=== PATIENT | female | born 1995 ===

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

== ENCOUNTER 2017-03-30 18:37 | Emergency (ER) | payer SELFPAY ==
[2017-03-30 18:57] VITALS: RESP 18; O2SAT 100
[2017-03-30] MEDS ORDERED: Sodium Chloride 0.9% 1,000 ML IV ONE (19:10)
--- NOTE | 2017-03-30 19:29 | C.PDOC ---
History Of Present Illness 21 y/o female c/o chest pain and cough symptoms for 1 week. Reports occasional SOB. Denies fever or chills. LMP last week. No palpitations or diaphoresis. Time Seen by Provider: 03/30/17 19:27 Chief Complaint (Nursing): Chest Pain History Per: Patient History/Exam Limitations: no limitations Onset/Duration Of Symptoms: Days (1 week) Current Symptoms Are (Timing): Still Present Severity: Mild Quality: "Pain" Associated Symptoms: denies: Diaphoresis Recent travel outside of the [place]: No Additional History Per: Patient Past Medical History Reviewed: Historical Data, Nursing Documentation, Vital Signs Vital Signs: Last Vital Signs Temp 97.9 F 03/30/17 18:55 Pulse 75 03/30/17 18:55 Resp 18 03/30/17 18:55 BP 109/72 03/30/17 18:55 Pulse Ox 100 03/30/17 20:46 - Medical History PMH: Pneumonia Family History: States: Unknown Family Hx - Social History Hx Tobacco Use: No Hx Alcohol Use: No Hx Substance Use: No - Immunization History Hx Tetanus Toxoid Vaccination: Yes Hx Influenza Vaccination: No Hx Pneumococcal Vaccination: No Review Of Systems Except As Marked, All Systems Reviewed And Found Negative. Constitutional: Negative for: Fever, Chills, Sweats Cardiovascular: Positive for: Chest Pain. Negative for: Palpitations Respiratory: Positive for: Cough, Shortness of Breath (occasional) Physical Exam - Physical Exam Appears: Non-toxic, No Acute Distress Skin: Warm, Dry Head: Atraumatic, Normacephalic Oral Mucosa: Moist Chest: Symmetrical, Tenderness (Tenderness to the anterior chest wall area by the sternum) Cardiovascular: Rhythm Regular, No Murmur Respiratory: Normal Breath Sounds, No Rales, No Rhonchi, No Wheezing Gastrointestinal/Abdominal: Soft, No Tenderness Back: No CVA Tenderness Neurological/Psych: Oriented x3, Normal Speech, Other (No focal deficit) Gait: Steady ED Course And Treatment - Laboratory Results Result Diagrams: 03/30/17 19:32 03/30/17 19:32 ECG: Interpreted By Me, Viewed By [place] ECG Rhythm: Sinus Rhythm ECG Interpretation: Normal Interpretation Of ECG: Normal tracing Rate From EC O2 Sat by Pulse Oximetry: 100 (RA) Pulse Ox Interpretation: Normal - Radiology CXR: Interpreted by Me CXR Interpretation: Yes: No Acute Disease. No: Infiltrates Medical Decision Making Medical Decision Making: Plans: * EKG * Blood labs * CXR * Toradol * IV fluids Disposition Doctor Will See Patient In The: Office Counseled Patient/Family Regarding: Diagnosis - Disposition Referrals: [facility] [Outside] Disposition: HOME/ ROUTINE Disposition Time: 20:38 Condition: STABLE Prescriptions: Azithromycin [Zithromax] 500 mg PO DAILY #7 tablet Naproxen 375 mg PO TIDPC #20 tablet Instructions: Pleurisy (ED), Upper Respiratory Infection (ED) Forms: [employer] ([employer]) Connect (Hong Konger), Gen Discharge Inst [employer] Print Language: GREENLANDIC - POA Present On Arrival: None - Clinical Impression Clinical Impression: Pleuritic pain, Upper respiratory infection - Scribe Statement The provider has reviewed the documentation as recorded by the Scribe Alejandra israel All medical record entries made by the Scribe were at my direction and personally dictated by me. I have reviewed the chart and agree that the record accurately reflects my personal performance of the history, physical exam, medical decision making, and the department course for this patient. I have also personally directed, reviewed, and agree with the discharge instructions and disposition.
[2017-03-30 19:36] LABS: BASO % 0.7 % (0.0-2.0); EOS % 0.8 % (0.0-4.0); HEMATOCRIT 38.8 % (34.0-47.0); LYMPH # 2.3 K/uL (1.0-4.3); LYMPH % 34.8 % (20.0-40.0); MEAN CELL VOLUME 87.7 fL (81.0-99.0); MEAN CORPUSCULAR HEMOGLOBIN 29.8 pg (27.0-31.0); MEAN PLATELET VOLUME 7.1 fL (7.2-11.7); MONO # 0.6 K/uL (0.0-0.8); MONO % 9.8 % (0.0-10.0); WHITE BLOOD COUNT 6.5 K/uL (4.8-10.8)
[2017-03-30 19:44] LABS: CHLORIDE 101 mmol/L (98-107); SODIUM 138 mmol/L (132-148)
[2017-03-30 19:45] LABS: POTASSIUM 3.9 mmol/L (3.6-5.2)
[2017-03-30 19:47] LABS: ALB/GLOB RATIO 1.5 (1.0-2.1); ALKALINE PHOSPHATASE 83 U/L (38-126); ALT/SGPT 30 U/L (9-52); AST/SGOT 24 U/L (14-36); BILIRUBIN,TOTAL 0.8 mg/dL (0.2-1.3); BLOOD UREA NITROGEN 12 mg/dL (7-17); CARBON DIOXIDE 26 mmol/L (22-30); GFR AFRICAN-AMERICAN > 60; GLUCOSE,RANDOM 79 mg/dL (65-105); TOTAL PROTEIN 7.7 g/dL (6.3-8.3)
[2017-03-30 19:48] LABS: CALCIUM 9.2 mg/dl (8.6-10.4)
[2017-03-30 20:57] VITALS: BP 124/67; PULSE 78; TEMP 98
--- NOTE | 2017-03-31 08:10 | RAD ---
HISTORY: chest pain COMPARISON: Comparison is made to 09/29/2016 TECHNIQUE: Chest PA and lateral FINDINGS: LUNGS: No active pulmonary disease. PLEURA: No significant pleural effusion identified. No pneumothorax apparent. CARDIOVASCULAR: Normal. OSSEOUS STRUCTURES: No significant abnormalities. VISUALIZED UPPER ABDOMEN: Normal. OTHER FINDINGS: None. IMPRESSION: No active disease.
--- NOTE | 2017-04-01 12:20 | CARD ---
APPROVED REPORT EKG Measurement Heart [id number] <Conclusion> Normal sinus rhythm Normal ECG
== END 2017-03-30 21:04 | disposition home or self-care (01) ==
LOC: C.ER 18:37
DX: R09.1 Pleurisy (principal); J06.9 Acute upper respiratory infection, unspecified
CPT/HCPCS: 71020; 80053; 84484; 85025; 85378; 96374; 99285; J1885; J7040

== ENCOUNTER 2017-08-17 08:31 | Emergency (ER) | payer OTHER ==
[2017-08-17 08:41] VITALS: BP 133/85; PULSE 78; RESP 18; TEMP 98.3; O2SAT 98
--- NOTE | 2017-08-17 08:58 | C.PDOC ---
History Of Present Illness 21-year-old female, presents to the emergency department with complaints of bilateral eye redness, itching and lid swelling. Denies any discharge, visual changes or injury to the eye. She does not use glasses or contacts. Time Seen by Provider: 08/17/17 08:42 Chief Complaint (Nursing): Eye Problem History Per: Patient History/Exam Limitations: no limitations Past Medical History Reviewed: Historical Data, Nursing Documentation, Vital Signs Vital Signs: Last Vital Signs Temp 98.3 F 08/17/17 08:37 Pulse 78 08/17/17 08:37 Resp 18 08/17/17 08:37 BP 133/85 08/17/17 08:37 Pulse Ox 98 08/17/17 11:09 - Medical History PMH: No Chronic Diseases, Pneumonia Family History: States: No Known Family Hx - Social History Hx Tobacco Use: No Hx Alcohol Use: No Hx Substance Use: No - Immunization History Hx Tetanus Toxoid Vaccination: No Hx Influenza Vaccination: No Hx Pneumococcal Vaccination: No Review Of Systems Constitutional: Negative for: Fever Eyes: Positive for: Eyelid Inflammation, Redness. Negative for: Vision Change ENT: Negative for: Ear Pain, Nose Congestion, Throat Pain Neurological: Negative for: Headache, Dizziness Physical Exam - Physical Exam Appears: Well, Non-toxic, No Acute Distress Skin: Normal Color, Warm, Dry, No Rash Head: Atraumatic, Normacephalic Eye(s): bilateral: PERRL, EOMI, Eyelid Inflammation (very mild eyelid inflammation), Other (Dark circles under eyes. no discharge, no conjunctival injection) Nose: Normal Oral Mucosa: Moist Lips: Normal Appearing Neck: Normal ROM Chest: Symmetrical Extremity: Bilateral: Atraumatic, Normal ROM Neurological/Psych: Oriented x3, Normal Speech ED Course And Treatment O2 Sat by Pulse Oximetry: 98 (RA) Pulse Ox Interpretation: Normal Medical Decision Making Medical Decision Making: Patient with bilateral eye redness and itching. No signs of injury, cellulitis, infection or foreign body. Patient treated with Claritin. Recommend allergy medicine Disposition Counseled Patient/Family Regarding: Diagnosis, Need For Followup, Rx Given - Disposition Referrals: [facility] [Outside] [facility] [Outside] Disposition: HOME/ ROUTINE Disposition Time: 08:58 Condition: STABLE Additional Instructions: Prescription sent to [facility] pharmacy Apply drops to eyes for itching and redness take daily allergy medicine follow up in the clinic Prescriptions: Loratadine [Claritin] 10 mg PO DAILY #30 tab Olopatadine 0.1% Opht [Patanol 0.1% Opht Soln] 5 ml OU DAILY #1 bottle Instructions: Seasonal Allergies in Adults Forms: [employer] (Turks [place] Islander) - POA Present On Arrival: None - Clinical Impression Clinical Impression: Conjunctivitis - Scribe Statement The provider has reviewed the documentation as recorded by the Scribe (Geetha Ramirez) All medical record entries made by the Scribe were at my direction and personally dictated by me. I have reviewed the chart and agree that the record accurately reflects my personal performance of the history, physical exam, medical decision making, and the department course for this patient. I have also personally directed, reviewed, and agree with the discharge instructions and disposition.
== END 2017-08-17 09:17 | disposition home or self-care (01) ==
LOC: C.ER 08:31
DX: H10.9 Unspecified conjunctivitis (principal)

== ENCOUNTER 2017-09-05 17:04 | Emergency (ER) | payer OTHER ==
[2017-09-05 17:04] VITALS: BMI 27.7
[2017-09-05 17:24] VITALS: BP 133/84; PULSE 92; RESP 18; TEMP 98.1; O2SAT 100
--- NOTE | 2017-09-05 17:44 | C.PDOC ---
History Of Present Illness 22 y/o female presents to the ER complaining of cough, nasal congestion and sore throat which has been present for the past 2 weeks.Patient states that she has greenish/yellowish sputum. Patient denies having abdominal pain, nausea, vomiting, and diarrhea. HPI: Influenza Time Seen by Provider: 09/05/17 17:26 Chief Complaint: Cough, Cold, Congestion History Per: Patient Exam Limitations: no limitations Onset/Duration Of Symptoms: Days Risk factors for flu complications: No: adult > 65 years Past Medical History Reviewed: Historical Data, Nursing Documentation, Vital Signs Vital Signs: Last Vital Signs Temp 98.1 F 09/05/17 17:20 Pulse 92 H 09/05/17 17:20 Resp 18 09/05/17 17:20 BP 133/84 09/05/17 17:20 Pulse Ox 100 09/05/17 17:20 - Medical History PMH: Pneumonia Surgical History: No Surg Hx Family History: States: No Known Family Hx - Social History Hx Tobacco Use: No Hx Alcohol Use: No Hx Substance Use: No - Immunization History Hx Tetanus Toxoid Vaccination: No Hx Influenza Vaccination: No Hx Pneumococcal Vaccination: No Review Of Systems Except As Marked, All Systems Reviewed And Found Negative. Constitutional: Negative for: Fever, Chills ENT: Positive for: Nose Congestion, Throat Pain Respiratory: Positive for: Cough, Sputum Gastrointestinal: Negative for: Nausea, Vomiting, Abdominal Pain, Diarrhea Physical Exam - Physical Exam Appears: Non-toxic, No Acute Distress Skin: Normal Color, Warm, Dry Head: Atraumatic, Normacephalic Eye(s): bilateral: Normal Inspection Ear(s): Bilateral: Normal Nose: Normal Oral Mucosa: Moist Throat: Normal, No Erythema, No Exudate Neck: Supple Chest: Symmetrical Cardiovascular: Rhythm Regular Respiratory: Normal Breath Sounds, No Rales, No Rhonchi, No Wheezing Neurological/Psych: Oriented x3, Normal Speech, Normal Motor, Normal Sensation Medical Decision Making Medical Decision Making: ro strep vs influenza vs pna vs viral syndrome Plan: --Flu Swab --Rapid Strep --CXR pt reassesed vitals stable lungs clear. pt had blood work 1 week ago in clinic cbc/cmp neg, mono neg. pt also on antibiotics for b/l eye as per optho. - ECG O2 Sat by Pulse Oximetry: 100 (RA) Pulse Ox Interpretation: Normal - Radiology X-Ray: Interpreted by Me, Viewed By Me X-Ray Interpretation: No Acute Disease Disposition - Disposition Disposition: HOME/ ROUTINE Disposition Time: 18:15 Condition: STABLE Additional Instructions: please follow up with your doctor/clinic. return to er with worsening symptoms or concerns Prescriptions: Oseltamivir Phosphate [Tamiflu] 75 mg PO BID #10 capsule Instructions: Viral Syndrome (DC) Forms: [employer] (Hungarian) - Clinical Impression Clinical Impression: Influenza-like illness - Scribe Statement The provider has reviewed the documentation as recorded by the Trista Leal Provider Attestation: All medical record entries made by the Trista were at my direction and personally dictated by me. I have reviewed the chart and agree that the record accurately reflects my personal performance of the history, physical exam, medical decision making, and the department course for this patient. I have also personally directed, reviewed, and agree with the discharge instructions and disposition.
[2017-09-05 17:57] LABS: INFLUENZA A B NEGATIVE FOR FLU A/B (NEGATIVE)
--- NOTE | 2017-09-05 18:00 | RAD ---
HISTORY: cough COMPARISON: 03/30/2017. TECHNIQUE: Chest PA and lateral FINDINGS: LUNGS: No active pulmonary disease. PLEURA: No significant pleural effusion identified. No pneumothorax apparent. CARDIOVASCULAR: Normal. OSSEOUS STRUCTURES: No significant abnormalities. VISUALIZED UPPER ABDOMEN: Normal. OTHER FINDINGS: None. IMPRESSION: No active disease. No significant interval change compared to the prior examination(s).
== END 2017-09-05 18:23 | disposition home or self-care (01) ==
LOC: C.ER 17:04
DX: J11.1 Influenza due to unidentified influenza virus with other respiratory manifestations (principal)

== ENCOUNTER 2017-09-07 16:29 | Emergency (ER) | payer OTHER ==
[2017-09-07] MEDS ORDERED: Sodium Chloride 0.9% 1,000 ML IV ONE (17:34)
--- NOTE | 2017-09-07 17:35 | C.PDOC ---
History Of Present Illness <Barbie Joshi - Last Filed: 09/07/17 18:37> <Zee Guillen iKke - Last Filed: 09/07/17 20:13> PERSIST EYE DISCOMFORT, L FACIAL SWELLING X 2-3 WEEKS. SEEN 08/17 AND 09/05 FOR SAME, INITIALLY GIVEN Loratadine [Claritin] 10 mg PO DAILY #30 tab Olopatadine 0.1% Opht [Patanol 0.1% Opht Soln] W NO IMPROVE. DX FLU 09/05. EVAL BY OPTHOMOLOGIST ([facility]?) LAST WEEK, PS TOLD WAS NO INFECTION "NO EYE PROBLEM" GIVEN DROPS FOR DRY EYES. +SINUS PRESSURE, SUBJ FEVER. NO VISION CHANGE , NV. NO TRAUMA. S/P MOTRIN @ 12 PM EXAM MILD DIST NONTOXIC HEENT B/L EYES WNL, NO PHOOTPHOBIA, NO CONJUNCTIVITIS EOMI NO DC; NO PERIORB SWELL, ERYTHEMA, EDEMA. GEN FRONTAL MAX SINUS TEND NOSE CLEAR NECK SUPPLE SKIN NO RASH, LESIONS NEURO INTACT REMAINDER NEG (Barbie Joshi) History Per: Patient History/Exam Limitations: no limitations Onset/Duration Of Symptoms: Days Current Symptoms Are (Timing): Still Present Severity: Moderate <Barbie Joshi - Last Filed: 09/07/17 18:37> <Patricia Guillendebi Stokes - Last Filed: 09/07/17 20:13> Time Seen by Provider: 09/07/17 17:17 Chief Complaint (Nursing): Eye Problem Past Medical History Reviewed: Historical Data, Nursing Documentation, Vital Signs - Medical History PMH: Pneumonia Surgical History: No Surg Hx Family History: States: No Known Family Hx - Social History Hx Tobacco Use: No Hx Alcohol Use: No Hx Substance Use: No - Immunization History Hx Tetanus Toxoid Vaccination: No Hx Influenza Vaccination: No Hx Pneumococcal Vaccination: No <Barbie Joshi - Last Filed: 09/07/17 18:37> Vital Signs: Last Vital Signs Temp 98.1 F 09/07/17 16:53 Pulse 86 09/07/17 16:53 Resp 20 09/07/17 16:53 BP 128/85 09/07/17 16:53 Pulse Ox 100 09/07/17 18:37 Review Of Systems Except As Marked, All Systems Reviewed And Found Negative. Constitutional: Positive for: Fever (subjective fever). Negative for: Chills Eyes: Positive for: Pain (eye discomfort). Negative for: Vision Change ENT: Positive for: Other (sinus pressure) Gastrointestinal: Negative for: Nausea, Vomiting Skin: Positive for: Other (left-sided facial swelling) <Barbie Joshi - Last Filed: 09/07/17 18:37> Physical Exam - Physical Exam Appears: Non-toxic, Other (mild distress) Skin: Normal Color, Warm, No Rash, Other (no lesions) Head: Atraumatic, Normacephalic Eye(s): bilateral: Normal Inspection (WNL, no photophobia, no conjunctivitis, EOMI, no discharge, no periorbital swelling, no erythema, no edema), EOMI Nose: Tenderness (generalized frontal max sinus tenderness) Neck: Supple Neurological/Psych: Oriented x3, Normal Speech <Barbie Joshi - Last Filed: 09/07/17 18:37> ED Course And Treatment - Laboratory Results Result Diagrams: 09/07/17 17:57 09/07/17 17:57 O2 Sat by Pulse Oximetry: 100 (RA) Pulse Ox Interpretation: Normal <Barbie Joshi - Last Filed: 09/07/17 18:37> - Laboratory Results Result Diagrams: 09/07/17 17:57 09/07/17 17:57 - CT Scan/US CT head Other Rad Studies (CT/US): Read By Radiologist, Radiology Report Reviewed CT/US Interpretation: IMPRESSION: - No acute findings seen within the brain. - Mild sinus inflammatory disease. - See above for remaining findings. CT Facial bones Other Rad Studies (CT/US): Read By Radiologist, Radiology Report Reviewed CT/US Interpretation: IMPRESSION: - No evidence of significant acute process. No definite cause for left eye. pain identified. - Sinus inflammatory disease. - See above for remaining findings. Progress Note: Pt was signed out to me at 7pm by Dr. Joshi to f/up CT scans. Reassessment Condition: Improved <Zee Guillen - Last Filed: 09/07/17 20:13> Progress - Data Reviewed Data Reviewed: Lab, Diagnostic imaging, Old records <Barbie Joshi - Last Filed: 09/07/17 18:37> Medical Decision Making <Barbie Joshi - Last Filed: 09/07/17 18:37> <Zee Guillen - Last Filed: 09/07/17 20:13> Medical Decision Making: Plan: --Labs --UA --CT- Head --CT- Orbits/ Facials (Barbie Joshi) Disposition - Disposition Disposition Time: 19:00 <Barbie Joshi - Last Filed: 09/07/17 18:37> Counseled Patient/Family Regarding: Studies Performed, Diagnosis, Need For Followup, Rx Given - Disposition Disposition Time: 20:10 <Zee Guillen - Last Filed: 09/07/17 20:13> - Disposition Referrals: [facility] at [facility] [Outside] Disposition: HOME/ ROUTINE Condition: IMPROVED Additional Instructions: Follow up in the clinic for further evaluation and treatment. Return to the ER if you develop high fever, vomiting, redness, change in vision, worsening of symptoms or if you have any other concerns. Prescriptions: Amoxicillin/Clavulanate [Augmentin 875 MG-125 MG] 1 tab PO BID #14 tab Fluticasone Nasal [Flonase] 2 spr NS DAILY #1 bottle Naproxen [Naprosyn] 1 tab PO BID PRN #20 tab PRN Reason: Pain Instructions: Sinusitis, Adult (DC) Forms: [employer] (Urdu) - Clinical Impression Clinical Impression: Sinusitis - Scribe Statement The provider has reviewed the documentation as recorded by the Scribe <Barbie Joshi - Last Filed: 09/07/17 18:37> <Zee Guillen - Last Filed: 09/07/17 20:13> - Scribe Statement Yamilex Leal (Barbie Joshi) Provider Attestation: All medical record entries made by the Scribe were at my direction and personally dictated by me. I have reviewed the chart and agree that the record accurately reflects my personal performance of the history, physical exam, medical decision making, and the department course for this patient. I have also personally directed, reviewed, and agree with the discharge instructions and disposition. (Barbie Joshi) Physician Patient Turnover Patient Signed Over To: Zee Guillen Handoff Comments: FU CT, DISPO <Barbie Joshi - Last Filed: 09/07/17 18:37>
[2017-09-07 18:00] LABS: BASO % 0.5 % (0.0-2.0); EOS # 0.1 K/uL (0.0-0.7); EOS % 1.2 % (0.0-4.0); HEMOGLOBIN 12.7 g/dL (11.0-16.0); LYMPH % 31.5 % (20.0-40.0); MEAN CELL VOLUME 88.1 fL (81.0-99.0); MEAN CORPUSCULAR HEMOGLOBIN 30.4 pg (27.0-31.0); MEAN CORPUSCULAR HGB CONC 34.5 g/dL (33.0-37.0); MEAN PLATELET VOLUME 6.8 fL (7.2-11.7); MONO # 1.1 K/uL (0.0-0.8); MONO % 11.1 % (0.0-10.0); NEUT # 5.3 K/uL (1.8-7.0); NEUT % 55.7 % (50.0-75.0); RBC 4.18 Mil/uL (3.80-5.20); RED CELL DISTRIBUTION WIDTH 12.7 % (11.5-14.5); WHITE BLOOD COUNT 9.5 K/uL (4.8-10.8)
[2017-09-07 18:16] LABS: BLOOD UREA NITROGEN 9 mg/dL (7-17); CALCIUM 8.1 mg/dl (8.6-10.4); GFR AFRICAN-AMERICAN > 60; GFR NON-AFRICAN AMERICAN > 60
[2017-09-07] MEDS ORDERED: Iodixanol 320 MG/ML 100 ML BOTTLE IV ONE (18:19)
--- NOTE | 2017-09-07 19:39 | CT ---
EXAM: CT Head Without Intravenous Contrast EXAM DATE/TIME: 09/07/2017 5:37 PM CLINICAL HISTORY: 22 years old, female; Condition or disease; Headache; Cluster TECHNIQUE: Axial computed tomography images of the head/brain without intravenous contrast. All CT scans at this facility use one or more dose reduction techniques, viz.: automated exposure control; ma/kV adjustment per patient size (including targeted exams where dose is matched to indication; i.e. head); or iterative reconstruction technique. COMPARISON: No relevant prior studies available. FINDINGS: BRAIN: No significant acute abnormality identified. No acute hemorrhage seen within the brain. No acute extra-axial fluid collections visualized. No evidence of significant mass effect within the brain. Normal king-white matter differentiation. VENTRICLES: No evidence of significant hydrocephalus. BONES/JOINTS: No acute fractures or other acute bony abnormality noted. SOFT TISSUES: No acute abnormality of the visualized soft tissues is seen. SINUSES: Mild sinus inflammatory disease. There is mild mucosal thickening in the bilateral maxillary and bilateral sphenoid sinuses. MASTOID AIR CELLS: Mastoid air cells appear clear. IMPRESSION: - No acute findings seen within the brain. - Mild sinus inflammatory disease - See above for remaining findings.
--- NOTE | 2017-09-07 19:53 | CT ---
EXAM: CT Maxillofacial With Intravenous Contrast EXAM DATE/TIME: 09/07/2017 5:34 PM CLINICAL HISTORY: 22 years old, female; Pain; Eye pain; Left; Additional info: L facial pain, fullness TECHNIQUE: Axial computed tomography images of the face with intravenous contrast. All CT scans at this facility use one or more dose reduction techniques, viz.: automated exposure control; ma/kV adjustment per patient size (including targeted exams where dose is matched to indication; i.e. head); or iterative reconstruction technique. Coronal and sagittal reformatted images were created and reviewed. CONTRAST: 100 mL of visipaque 320 administered intravenously. COMPARISON: Recent head CT. FINDINGS: BONES/JOINTS: No acute fractures seen. No evidence of acute dislocation. SOFT TISSUES: No findings to suggest significant cellulitis of the soft tissues. No evidence of focal soft tissue fluid collection/abscess. LYMPH NODES: Multiple small lymph nodes seen in the neck and face bilaterally, none appearing pathologically enlarged. This is a nonspecific finding. No evidence of diffuse pathologic lymphadenopathy. ORBITS :Intraorbital soft tissues appear grossly intact. No evidence of orbital abscess, orbital cellulitis, or orbital emphysema. SUBMANDIBULAR/PAROTID GLANDS: No acute abnormality of the parotid or submandibular glands identified. SINUSES: Sinus inflammatory disease. There is mild to moderate mucosal thickening in the bilateral maxillary and bilateral ethmoid sinuses. No evidence of sinus fluid levels. MASTOID AIR CELLS: Mastoid air cells appear clear. AUDITORY SYSTEM: Middle ear cavities appear clear. DENTAL: No periodontal abscess seen. IMPRESSION: - No evidence of significant acute process. No definite cause for left eye pain identified. - Sinus inflammatory disease. - See above for remaining findings.
[2017-09-08 11:21] VITALS: BP 112/64; PULSE 72; RESP 18; TEMP 98.1; O2SAT 98; BMI 27.9
== END 2017-09-07 20:20 | disposition home or self-care (01) ==
LOC: C.ER 16:29
DX: J32.9 Chronic sinusitis, unspecified (principal)
CPT/HCPCS: 70450; 70481; 80048; 85025; 96361; 96374; 99284; J1885; J7040; Q9967

== ENCOUNTER 2017-09-26 17:51 | Emergency (ER) | payer OTHER ==
[2017-09-26 19:04] VITALS: BMI 28.4
[2017-09-26 19:08] VITALS: BP 122/82; PULSE 84; TEMP 98.1; O2SAT 100
--- NOTE | 2017-09-26 20:09 | C.PDOC ---
History Of Present Illness 22 yo female come in for evaluation of gradual onset of pain/discomfort on urination, urinary frequency for past 2 weeks. Pt admits, for past few days, developed left sided lower back pain, noted some "bloody vaginal spotting when wipe myself". Otherwise, pt denies fever, chills, sore throat, rash, cough, abd. pain, V/D, vaginal irritation or discharges. Ambulate to Ed for evaluation , not in any apparent distress. Time Seen by Provider: 09/26/17 19:34 Chief Complaint (Nursing): Female Genitourinary History Per: Patient Onset/Duration Of Symptoms: Gradual Past Medical History Reviewed: Historical Data, Nursing Documentation, Vital Signs Vital Signs: Last Vital Signs Temp 98.1 F 09/26/17 19:06 Pulse 84 09/26/17 19:06 Resp 20 09/26/17 22:11 BP 122/82 09/26/17 19:06 Pulse Ox 100 09/26/17 21:48 - Medical History PMH: Pneumonia Surgical History: Tonsillectomy Family History: States: Unknown Family Hx - Social History Hx Tobacco Use: No Hx Alcohol Use: Yes Hx Substance Use: No - Immunization History Hx Tetanus Toxoid Vaccination: No Hx Influenza Vaccination: No Hx Pneumococcal Vaccination: No Review Of Systems Except As Marked, All Systems Reviewed And Found Negative. Constitutional: Negative for: Fever, Chills ENT: Negative for: Throat Pain Respiratory: Negative for: Cough, Shortness of Breath, Wheezing Gastrointestinal: Negative for: Nausea, Vomiting, Abdominal Pain, Diarrhea Genitourinary: Positive for: Dysuria, Frequency, Hematuria, Vaginal Bleeding. Negative for: Pelvic Pain, Rash Skin: Negative for: Rash Neurological: Negative for: Weakness, Numbness, Headache, Dizziness Physical Exam - Physical Exam Appears: Well, Non-toxic, No Acute Distress Skin: Normal Color, Warm, Dry Eye(s): bilateral: PERRL Nose: No Flaring Oral Mucosa: Moist, No Drooling Throat: No Erythema Neck: Trachea Midline, Supple Cardiovascular: Rhythm Regular Respiratory: No Decreased Breath Sounds, No Accessory Muscle Use, No Stridor, No Wheezing Gastrointestinal/Abdominal: Soft, Tenderness (mild suprapubic), No Distention, No Guarding Back: No CVA Tenderness, Paraspinal Tenderness (Left sided lumbar paraspinal) Extremity: Normal ROM, No Pedal Edema, No Deformity Neurological/Psych: Oriented x3, Normal Speech ED Course And Treatment O2 Sat by Pulse Oximetry: 100 Pulse Ox Interpretation: Normal Progress Note: On re-eval, pt is afebrile, hemodynamicaly stable. Non-toxic. Tolerate Po well in ED. PusleOx 100% RA. Neck: Supple. ENT: no acute findings. Lungs: CTA B/L, BS equal B/L. CVS: (+)S1S2. reg. Abd: benign. back : (-) CVA tenderness. Neurologicaly intact. UA review (+) WBC, RBC, preg (-). Ucx-pending. Pt has clinical findings c/w UTI. Pt avdised. ref. to f/u with PMD, [facility] in 2-3 days for re-evaluation. return to Ed if any worsening or new changes. Disposition Counseled Patient/Family Regarding: Studies Performed, Diagnosis, Need For Followup, Rx Given - [facility]position [facility] Disposition: HOME/ ROUTINE Disposition Time: 20:40 Condition: STABLE Additional Instructions: Encourage fluids Take medication as prescribed Follow up with PMD and [facility] in 2 days for re-evaluation. Return to ED if any worsening, fever, chills or any other new changes. Prescriptions: Ciprofloxacin [Cipro] 1 tab PO BID #20 tab Cranberry Fruit Extract [Cranberry] 500 mg PO BID #20 capsule Instructions: Urinary Tract Infections in Adults Forms: [facility] (Tuvaluan) - Clinical Impression Clinical Impression: UTI (urinary tract infection)
[2017-09-26 20:23] LABS: HCG,QUALITATIVE URINE NEGATIVE (NEGATIVE)
[2017-09-26 20:27] LABS: SQUAMOUS EPITHIAL 8 /hpf (0-5); URINE BACTERIA RARE (<OCC); URINE BILIRUBIN NEGATIVE (NEGATIVE); URINE BLOOD 3+ (NEGATIVE); URINE GLUCOSE (UA) NORMAL (Normal); URINE LEUKOCYTE ESTERASE 2+ Leu/uL (Negative); URINE PROTEIN 1+ mg/dL (NEGATIVE)
[2017-09-26 20:28] LABS: URINE CLARITY HAZY (Clear); URINE COLOR ORANGE (YELLOW)
[2017-09-26 22:12] VITALS: RESP 20
== END 2017-09-26 22:11 | disposition home or self-care (01) ==
LOC: C.ER 17:51
DX: N39.0 Urinary tract infection, site not specified (principal)

== ENCOUNTER 2017-09-28 19:49 | Emergency (ER) | payer OTHER ==
[2017-09-28 19:49] VITALS: BMI 28.4
[2017-09-28 20:10] VITALS: RESP 16
[2017-09-28] MEDS ORDERED: Sodium Chloride 0.9% 1,000 ML IV ONE (20:22)
[2017-09-28 20:48] LABS: BASO % 0.4 % (0.0-2.0); EOS % 0.1 % (0.0-4.0); HEMOGLOBIN 12.4 g/dL (11.0-16.0); LYMPH # 1.6 K/uL (1.0-4.3); LYMPH % 14.8 % (20.0-40.0); MEAN CELL VOLUME 88.3 fL (81.0-99.0); MEAN CORPUSCULAR HEMOGLOBIN 29.6 pg (27.0-31.0); MEAN CORPUSCULAR HGB CONC 33.5 g/dL (33.0-37.0); MEAN PLATELET VOLUME 7.1 fL (7.2-11.7); MONO % 18.3 % (0.0-10.0); NEUT # 7.4 K/uL (1.8-7.0); NEUT % 66.4 % (50.0-75.0); RBC 4.19 Mil/uL (3.80-5.20); WHITE BLOOD COUNT 11.1 K/uL (4.8-10.8)
[2017-09-28 20:55] LABS: SQUAMOUS EPITHIAL < 1 /hpf (0-5); URINE BILIRUBIN NEGATIVE (NEGATIVE); URINE BLOOD 1+ (NEGATIVE); URINE CLARITY Clear (Clear); URINE COLOR Yellow (YELLOW); URINE GLUCOSE (UA) NORMAL (Normal); URINE LEUKOCYTE ESTERASE TRACE Leu/uL (Negative); URINE PROTEIN NEGATIVE (NEGATIVE)
[2017-09-28 21:02] LABS: ALB/GLOB RATIO 1.1 (1.0-2.1); ALBUMIN 4.2 g/dL (3.5-5.0); ALT/SGPT 15 U/L (9-52); AST/SGOT 19 U/L (14-36); BLOOD UREA NITROGEN 11 mg/dL (7-17); CALCIUM 8.8 mg/dl (8.6-10.4); GFR AFRICAN-AMERICAN > 60; GFR NON-AFRICAN AMERICAN > 60
--- NOTE | 2017-09-28 21:15 | C.PDOC ---
History Of Present Illness 22 year old female presents to the ER for an evaluation of left flank pain that has been going on for the past 5 days. Patient was seen in the ED 2 days ago for UTI, she was given 400mg ibuprofen and started on cipro. Patient states her urinary symptoms improved, however, she still has flank pain. Patient also reports she felt chills last night. Denies nausea or vomiting. Time Seen by Provider: 09/28/17 20:12 Chief Complaint (Nursing): Back Pain History Per: Patient History/Exam Limitations: no limitations Onset/Duration Of Symptoms: Days Current Symptoms Are (Timing): Still Present Quality Of Discomfort: Unable To Describe Previous Symptoms: Other (UTI) Associated Symptoms: None Recent travel outside of the [place]: No Past Medical History Reviewed: Historical Data, Nursing Documentation, Vital Signs Vital Signs: Last Vital Signs Temp 98.2 F 09/28/17 21:37 Pulse 78 09/28/17 21:37 Resp 16 09/28/17 21:37 BP 106/68 09/28/17 21:37 Pulse Ox 97 09/28/17 21:53 - Medical History PMH: Pneumonia Surgical History: Tonsillectomy Family History: States: Unknown Family Hx - Social History Hx Tobacco Use: No Hx Alcohol Use: Yes Hx Substance Use: No - Immunization History Hx Tetanus Toxoid Vaccination: No Hx Influenza Vaccination: No Hx Pneumococcal Vaccination: No Review Of Systems Constitutional: Positive for: Chills. Negative for: Fever Gastrointestinal: Negative for: Nausea, Vomiting Musculoskeletal: Positive for: Back Pain (Left flank) Physical Exam - Physical Exam Appears: Non-toxic Skin: Normal Color, Warm, Dry Head: Atraumatic, Normacephalic Eye(s): bilateral: Normal Inspection, EOMI Oral Mucosa: Moist Neck: Normal ROM Chest: Symmetrical, No Tenderness Cardiovascular: Rhythm Regular, No Murmur Respiratory: Normal Breath Sounds, No Rales, No Rhonchi, No Wheezing Gastrointestinal/Abdominal: Bowel Sounds, Soft, No Tenderness, No Distention, No Guarding Back: Normal Inspection, No Vertebral Tenderness, Other (Mild to left flank) Extremity: Bilateral: Atraumatic, Normal ROM Neurological/Psych: Oriented x3, Normal Speech Gait: Steady ED Course And Treatment - Laboratory Results Result Diagrams: 09/28/17 20:44 09/28/17 20:44 Lab Interpretation: Abnormal O2 Sat by Pulse Oximetry: 97 (Room air) Pulse Ox Interpretation: Normal Medical Decision Making Medical Decision Making: Impression: left flank pain Plan: * Labs * UA * IV NS * IV Toradol Progress Labs reviewed and shows mild leukocytosis, no bandemia. UA looks better than 2 days ago, no nitrates. 2117 Patient re-evaluated and states she is feeling better. Discussed results with patient who wants imaging. I explained to patient CT abdomen exposes patient to unnecessary radiation, as she already has diagnosis and appropriate antibiotic treatment and UA reflects improvement. CT will not change treatment. Patient expressed understanding and agrees no CT at this time. Patient remained afebrile. She is stable for discharge. Advise to drink fluids and take NSAIDs for pain. Patient can follow up with primary medical doctor. Disposition Counseled Patient/Family Regarding: Need For Followup - Disposition Disposition: HOME/ ROUTINE Disposition Time: 21:29 Condition: STABLE Additional Instructions: Continue with Cipro and finish course of antibiotic Drink plenty of fluids Take naproxen for pain 2 times daily Follow up with your primary medical doctor or clinic in 2-5 days for further evaluation Prescriptions: Naproxen [Naprosyn] 1 tab PO BID PRN #25 tab PRN Reason: Pain Instructions: Urinary Tract Infection, Adult (DC) Forms: [facility] (Divehi) - POA Present On Arrival: None - Clinical Impression Clinical Impression: UTI (urinary tract infection) - Scribe Statement The provider has reviewed the documentation as recorded by the Scribe Heber Senior All medical record entries made by the Scribe were at my direction and personally dictated by me. I have reviewed the chart and agree that the record accurately reflects my personal performance of the history, physical exam, medical decision making, and the department course for this patient. I have also personally directed, reviewed, and agree with the discharge instructions and disposition.
[2017-09-28 21:39] VITALS: BP 106/68; PULSE 78; TEMP 98.2
[2017-09-28 21:51] VITALS: O2SAT 97
== END 2017-09-28 21:40 | disposition home or self-care (01) ==
LOC: C.ER 19:49
DX: N39.0 Urinary tract infection, site not specified (principal)
CPT/HCPCS: 80053; 81001; 85025; 96361; 96374; 99283; J1885; J7040

== ENCOUNTER 2017-10-25 21:25 | Emergency (ER) | payer OTHER ==
[2017-10-25 21:26] VITALS: BMI 28.4
[2017-10-25 21:45] VITALS: BP 115/77; PULSE 86; RESP 20; TEMP 98.5; O2SAT 98
[2017-10-25] MEDS ORDERED: Apap-Butalbital-Caffeine 325-50-40mg Tab PO STA (22:16)
[2017-10-25] MEDS ORDERED: Apap-Butalbital-Caffeine 325-50-40mg Tab ONE (22:24)
--- NOTE | 2017-10-25 23:00 | C.PDOC ---
History Of Present Illness 22 year old female with PMHx of sinusitis presents to the ED c/o right sided headache for the past 4 days. Patient reports her sinusitis pain usually located on the other side. Patient states she recently completed a course of antibiotics few days ago but pain has been worsening. Patient presents today requesting a head CT. Patient denies URI symptoms, nausea, vomit, dizziness, photophobia, weakness, numbness. Time Seen by Provider: 10/25/17 21:58 Chief Complaint (Nursing): Headache History Per: Patient History/Exam Limitations: no limitations Onset/Duration Of Symptoms: Days Current Symptoms Are (Timing): Still Present Quality: "Pain" Preceeding Symptoms: None Recent travel outside of the [place]: No Additional History Per: Patient Past Medical History Reviewed: Historical Data, Nursing Documentation, Vital Signs Vital Signs: Last Vital Signs Temp 98.5 F 10/25/17 21:41 Pulse 86 10/25/17 21:41 Resp 20 10/26/17 00:31 BP 115/77 10/25/17 21:41 Pulse Ox 98 10/26/17 00:47 - Medical History PMH: Pneumonia Surgical History: Tonsillectomy Family History: States: Unknown Family Hx - Social History Hx Tobacco Use: No Hx Alcohol Use: No Hx Substance Use: No - Immunization History Hx Tetanus Toxoid Vaccination: No Hx Influenza Vaccination: No Hx Pneumococcal Vaccination: No Review Of Systems Constitutional: Negative for: Fever, Chills ENT: Negative for: Nose Discharge, Nose Congestion Respiratory: Negative for: Cough, Shortness of Breath Gastrointestinal: Negative for: Nausea, Vomiting Skin: Negative for: Rash Neurological: Positive for: Headache. Negative for: Dizziness Physical Exam - Physical Exam Appears: Non-toxic, No Acute Distress Skin: Normal Color, Warm, Dry Head: Atraumatic, Normacephalic, No Tenderness Eye(s): bilateral: Normal Inspection, PERRL, EOMI Ear(s): Bilateral: Normal Nose: No Discharge Oral Mucosa: Moist Throat: Normal, No Erythema, No Exudate Neck: Normal ROM, No Midline Cervical Tenderness, Supple Chest: Symmetrical Cardiovascular: Rhythm Regular, No Murmur Respiratory: Normal Breath Sounds, No Rales, No Rhonchi, No Wheezing Gastrointestinal/Abdominal: Soft, No Tenderness, No Guarding, No Rebound Extremity: Normal ROM Neurological/Psych: Oriented x3, Normal Speech, Normal Motor, Normal Sensation Gait: Steady ED Course And Treatment O2 Sat by Pulse Oximetry: 98 (ON RA) Pulse Ox Interpretation: Normal - CT Scan/US CT head Other Rad Studies (CT/US): Read By Radiologist, Radiology Report Reviewed CT/US Interpretation: FINDINGS: Brain: Unremarkable. No hemorrhage. No significant white matter disease. No edema. Ventricles: Unremarkable. No ventriculomegaly. Bones/joints: Unremarkable. No acute fracture. Soft tissues : Unremarkable. Sinuses: Unremarkable as visualized. No acute sinusitis. Mastoid air cells: Unremarkable as visualized. No mastoid effusion. IMPRESSION : No evidence of an acute intracranial abnormality. Progress Note: Plan: - Fioricet 2 tab PO. - Reglan 10 mg PO. - Toradol 15 mg IM. Pt and her mother is insisting on having a head CT - states headache is different. Pt reported had a head CT 1 month ago that showed sinusitis but as this headache feels different she will feel more comfortable with a repeat CT. Risks of radiation- related complications explained to pt but still wishes to have a CT scan done. CT results d/w pt. On reassessment, patient is resting comfortably, is tolerating PO, and pain has improved. Patient has no neurologic deficit, photophobia, rash, fever, or nuchal rigidity. Patient was instructed to follow up with physician/clinic in 1-2 days. Return precautions d/w pt who understand and agreed to plan Disposition Counseled Patient/Family Regarding: Diagnosis, Need For Followup, Rx Given - Disposition Referrals: [facility] [Outside] Disposition: HOME/ ROUTINE Disposition Time: 22:59 Condition: STABLE Additional Instructions: Take medications as directed Follow up with PMD Return to ER if worse Prescriptions: Acetaminophen/Butalbital/Caf [Fioricet] 1 tab PO TID PRN #15 tab PRN Reason: Headache Ibuprofen [Motrin] 600 mg PO Q6H #20 tab Instructions: Headache, Adult (DC) Forms: [facility] (Azeri) - Clinical Impression Clinical Impression: Headache, Migraine - PA / GEOPHYSICS SCIENTIST / Resident Statement MD/DO has reviewed & agrees with the documentation as recorded. - Scribe Statement The provider has reviewed the documentation as recorded by the Scribe Aj Mina All medical record entries made by the Scribe were at my direction and personally dictated by me. I have reviewed the chart and agree that the record accurately reflects my personal performance of the history, physical exam, medical decision making, and the department course for this patient. I have also personally directed, reviewed, and agree with the discharge instructions and disposition.
--- NOTE | 2017-10-25 23:34 | CT ---
EXAM: CT Head Without Intravenous Contrast CLINICAL HISTORY: 22 years old, female; Pain; Headache; Patient HX: 3-28-18 images sent TECHNIQUE: Axial computed tomography images of the head/brain without intravenous contrast. All CT scans at this facility use one or more dose reduction techniques, viz.: automated exposure control; ma/kV adjustment per patient size (including targeted exams where dose is matched to indication; i.e. head); or iterative reconstruction technique. COMPARISON: No relevant prior studies available. FINDINGS: Brain: Unremarkable. No hemorrhage. No significant white matter disease. No edema. Ventricles: Unremarkable. No ventriculomegaly. Bones/joints: Unremarkable. No acute fracture. Soft tissues: Unremarkable. Sinuses: Unremarkable as visualized. No acute sinusitis. Mastoid air cells: Unremarkable as visualized. No mastoid effusion. IMPRESSION: No evidence of an acute intracranial abnormality.
== END 2017-10-26 00:31 | disposition home or self-care (01) ==
LOC: C.ER 21:25
DX: G43.909 Migraine, unspecified, not intractable, without status migrainosus (principal)
CPT/HCPCS: 70450; 96372; 99284; J1885

== ENCOUNTER 2017-10-27 18:54 | Emergency (ER) | payer OTHER ==
[2017-10-27 18:54] VITALS: BMI 28.4
[2017-10-27 19:00] VITALS: O2SAT 100
--- NOTE | 2017-10-27 20:03 | C.PDOC ---
History Of Present Illness 22 year old, PMHx of chronic constipation, presents to the ED with complaints of lower abdomen pain that began yesterday. Patient reports blood streaked stools but denies associated symptoms including fever, nausea, dysuria, hematuria, and diarrhea. Patient states she was seen by PMD 3 days ago for similar symptoms and was sent for blood work, but is unsure of results. Patient also came to the ER 2 days ago with complaints of right sided headache that was unchanged with Fioricet. Time Seen by Provider: 10/27/17 19:19 Chief Complaint (Nursing): Abdominal Pain History Per: Patient History/Exam Limitations: no limitations Onset/Duration Of Symptoms: Days Current Symptoms Are (Timing): Still Present Associated Symptoms: Fever, Nausea, Vomiting, Diarrhea, Constipation, Urinary Symptoms (Dysuria, hematuria ) Past Medical History Reviewed: Historical Data, Nursing Documentation, Vital Signs Vital Signs: Last Vital Signs Temp 98.6 F 10/27/17 20:17 Pulse 63 10/27/17 20:17 Resp 18 10/27/17 20:17 BP 108/70 10/27/17 20:17 Pulse Ox 100 10/27/17 21:06 - Medical History PMH: Pneumonia Other PMH: Constipation Surgical History: No Surg Hx, Tonsillectomy Family History: States: Unknown Family Hx - Social History Hx Tobacco Use: No Hx Alcohol Use: No Hx Substance Use: No - Immunization History Hx Tetanus Toxoid Vaccination: No Hx Influenza Vaccination: No Hx Pneumococcal Vaccination: No Review Of Systems Constitutional: Negative for: Fever Gastrointestinal: Positive for: Abdominal Pain, Constipation, Hematochezia (mild ). Negative for: Nausea, Vomiting, Diarrhea, Melena Genitourinary: Negative for: Dysuria, Hematuria Physical Exam - Physical Exam Appears: Well, Non-toxic Skin: Normal Color, Warm Head: Atraumatic, Normacephalic Eye(s): bilateral: Normal Inspection, PERRL, EOMI Oral Mucosa: Moist Neck: Supple Respiratory: Normal Breath Sounds Gastrointestinal/Abdominal: Normal Exam, No Tenderness, No Distention, No Guarding Rectal: Normal Exam, No Melena, No Blood Streaked Stool, No Hemorrhoids, No Mass , No Tenderness, Other (Small skin tag noted, no fecal impaction) Back: No CVA Tenderness ED Course And Treatment O2 Sat by Pulse Oximetry: 100 (RA) Pulse Ox Interpretation: Normal Progress Note: Patient was seen by PMD three days ago and had lab work , results not yet in. Pt states abd pain subsided since in ER. Advised patient to see PMD, to increase dose FIORICET. Patient understands and agrees with plan. Return precuations discussed with patient as well who expressed understanding. Disposition Counseled Patient/Family Regarding: Diagnosis, Need For Followup, Rx Given - Disposition Disposition: HOME/ ROUTINE Disposition Time: 20:21 Condition: STABLE Additional Instructions: Please follow up with PMD Increase fiber in her diet May increase Fioricet to 2 tabs 3x daily Return to ER if worse Instructions: High Fiber Diet, Constipation, Adult (DC) Forms: [facility] (Chilean) - Clinical Impression Clinical Impression: Headache, Constipation - PA / HEADER SETUP OPERATOR / Resident Statement MD/DO has reviewed & agrees with the documentation as recorded. - Scribe Statement The provider has reviewed the documentation as recorded by the Scribe (Amira Li) All medical record entries made by the Scribe were at my direction and personally dictated by me. I have reviewed the chart and agree that the record accurately reflects my personal performance of the history, physical exam, medical decision making, and the department course for this patient. I have also personally directed, reviewed, and agree with the discharge instructions and disposition.
[2017-10-27 20:18] VITALS: BP 108/70; PULSE 63; RESP 18; TEMP 98.6
== END 2017-10-27 20:39 | disposition home or self-care (01) ==
LOC: C.ER 18:54
DX: R51 Headache (principal); K59.00 Constipation, unspecified

== ENCOUNTER 2017-11-04 14:04 | Inpatient (IN) | payer OTHER, MEDICAID ==
[2017-11-04 14:04] VITALS: BMI 27.4
[2017-11-04] MEDS ORDERED: Sodium Chloride 0.9% 1,000 ML IV ONE (14:47)
[2017-11-04 15:05] LABS: BASO % 0.6 % (0.0-2.0); EOS # 0.1 K/uL (0.0-0.7); EOS % 1.9 % (0.0-4.0); HEMOGLOBIN 13.9 g/dL (11.0-16.0); LYMPH % 28.8 % (20.0-40.0); MEAN CELL VOLUME 87.4 fL (81.0-99.0); MEAN CORPUSCULAR HEMOGLOBIN 30.2 pg (27.0-31.0); MEAN CORPUSCULAR HGB CONC 34.5 g/dL (33.0-37.0); MEAN PLATELET VOLUME 7.9 fL (7.2-11.7); MONO # 0.5 K/uL (0.0-0.8); MONO % 7.6 % (0.0-10.0); NEUT # 4.3 K/uL (1.8-7.0); NEUT % 61.1 % (50.0-75.0); RBC 4.6 Mil/uL (3.80-5.20)
[2017-11-04 15:10] LABS: HCG,QUALITATIVE URINE NEGATIVE (NEGATIVE)
[2017-11-04] MEDS ORDERED: Iohexol 240 (50 ml) PO STA (15:14)
--- NOTE | 2017-11-04 15:16 | C.PDOC ---
History Of Present Illness 22 y/o female presents to ED sent from clinic for further evaluation on cramping abdominal pain and mucous/blood in stool. Patient went to clinic for abdominal pain and was advised to come to ED for further eval and to rule out C- diff colitis. Patient reports intermittent blood in stoool but currently resports no blood. Patient denies fever, chills, nausea, vomiting or any other complaints at this time. Time Seen by Provider: 11/04/17 14:25 Chief Complaint (Nursing): Abdominal Pain History Per: Patient History/Exam Limitations: no limitations Onset/Duration Of Symptoms: Days Current Symptoms Are (Timing): Still Present Location Of Pain/Discomfort: Diffuse Past Medical History Reviewed: Historical Data, Nursing Documentation, Vital Signs Vital Signs: Last Vital Signs Temp 98.6 F 11/04/17 22:10 Pulse 79 11/04/17 22:10 Resp 20 11/04/17 22:10 BP 109/66 11/04/17 22:10 Pulse Ox 100 11/04/17 22:10 - Medical History PMH: Pneumonia Surgical History: Tonsillectomy Family History: States: No Known Family Hx - Social History Hx Tobacco Use: No Hx Alcohol Use: No Hx Substance Use: No - Immunization History Hx Tetanus Toxoid Vaccination: No Hx Influenza Vaccination: No Hx Pneumococcal Vaccination: No Review Of Systems Constitutional: Negative for: Fever, Chills Gastrointestinal: Positive for: Abdominal Pain, Hematochezia. Negative for: Nausea, Vomiting, Hematemesis Skin: Negative for: Rash Physical Exam - Physical Exam Appears: Non-toxic, No Acute Distress Skin: Warm, Dry, No Rash Head: Atraumatic, Normacephalic Eye(s): bilateral: Normal Inspection, EOMI Oral Mucosa: Moist Neck: Normal ROM, Supple Cardiovascular: Rhythm Regular Respiratory: Normal Breath Sounds, No Rales, No Rhonchi, No Wheezing Gastrointestinal/Abdominal: Soft, Tenderness (Mild non focal), No Guarding, No Rebound Rectal: Normal Exam, No Maroon Stool, No Hemorrhoids Neurological/Psych: Oriented x3, Normal Speech ED Course And Treatment - Laboratory Results Result Diagrams: 11/04/17 14:55 11/04/17 14:55 O2 Sat by Pulse Oximetry: 100 (RA) Pulse Ox Interpretation: Normal Medical Decision Making Medical Decision Making: sent by clinic for eval for cdiff- labs imaging pendign pt cdiff positive. pt reports "significant blood/mucus stools". rositae priscilla hosptialist. accepts for admission. Disposition - Disposition Disposition: HOSPITALIZED Disposition Time: 06:00 Condition: STABLE - Clinical Impression Clinical Impression: C. difficile colitis - Scribe Statement The provider has reviewed the documentation as recorded by the Amandaibluis English All medical record entries made by the Amandaibluis were at my direction and personally dictated by me. I have reviewed the chart and agree that the record accurately reflects my personal performance of the history, physical exam, medical decision making, and the department course for this patient. I have also personally directed, reviewed, and agree with the discharge instructions and disposition.
[2017-11-04 15:18] LABS: SQUAMOUS EPITHIAL 1 /hpf (0-5); URINE BILIRUBIN NEGATIVE (NEGATIVE); URINE BLOOD NEGATIVE (NEGATIVE); URINE CLARITY Clear (Clear); URINE COLOR Yellow (YELLOW); URINE GLUCOSE (UA) NORMAL (Normal); URINE LEUKOCYTE ESTERASE NEG Leu/uL (Negative); URINE PROTEIN NEGATIVE (NEGATIVE); URINE UROBILINOGEN NORMAL mg/dL (0.2-1.0)
[2017-11-04 15:20] LABS: INR 1.3; PROTHROMBIN TIME 14.1 SECONDS (9.7-12.2)
[2017-11-04] MEDS ORDERED: Iohexol 240 (50 ml) ONE (15:20)
[2017-11-04 15:28] LABS: ALB/GLOB RATIO 1.2 (1.0-2.1); ALBUMIN 4.8 g/dL (3.5-5.0); ALT/SGPT 24 U/L (9-52); AST/SGOT 32 U/L (14-36); BLOOD UREA NITROGEN 11 mg/dL (7-17); CALCIUM 9.4 mg/dl (8.6-10.4); GFR AFRICAN-AMERICAN > 60; GFR NON-AFRICAN AMERICAN > 60; LIPASE 127 U/L (23-300)
--- NOTE | 2017-11-04 15:54 | RAD ---
PROCEDURE: CHEST RADIOGRAPH, 1 VIEW HISTORY: abd pain COMPARISON: Chest radiographs 09/05/2017 FINDINGS: LUNGS: No acute pulmonary disease appreciable. PLEURA: No pneumothorax or pleural fluid seen. CARDIOVASCULAR: Normal. OSSEOUS STRUCTURES: No significant abnormalities. VISUALIZED UPPER ABDOMEN: Normal. OTHER FINDINGS: None. IMPRESSION: No interval acute cardiopulmonary disease appreciated.
[2017-11-04] MEDS ORDERED: Iodixanol 320 MG/ML 100 ML BOTTLE IV ONE (16:18)
--- NOTE | 2017-11-04 17:18 | CT ---
PROCEDURE: CT Abdomen and Pelvis with contrast HISTORY: abd pain COMPARISON: None. TECHNIQUE: Contrast dose: 100 mL Visipaque 320 Radiation dose: Total exam DLP = 523.700 mGy-cm. This CT exam was performed using one or more of the following dose reduction techniques: Automated exposure control, adjustment of the mA and/or kV according to patient size, and/or use of iterative reconstruction technique. FINDINGS: LOWER THORAX: Unremarkable. LIVER: Unremarkable. No gross lesion or ductal dilatation. GALLBLADDER AND BILE DUCTS: Unremarkable. PANCREAS: Unremarkable. No gross lesion or ductal dilatation. SPLEEN: Unremarkable. ADRENALS: Unremarkable. No mass. KIDNEYS AND URETERS: Unremarkable. No hydronephrosis. No solid mass. VASCULATURE: Unremarkable. No aortic aneurysm. BOWEL: No bowel obstruction. Mild mural thickening of the superior rectum common nonspecific. Consider evaluation with colonoscopy when clinically feasible. Cannot rule out proctitis or neoplastic disorder. No other abnormal bowel loops. APPENDIX: Normal appendix. PERITONEUM: Unremarkable. No free fluid. No free air. LYMPH NODES: Unremarkable. No enlarged lymph nodes. BLADDER: Nondistended REPRODUCTIVE: Normal uterus BONES: No acute fracture. OTHER FINDINGS: None. IMPRESSION: Mild mural thickening of the superior rectum common nonspecific. Consider evaluation with colonoscopy when clinically feasible. No other acute abnormality.
[2017-11-04] MEDS ORDERED: metroNIDAZOLE IV 500 mg/100 ml 500 MG/100 ML BAG IVPB STA (18:08)
[2017-11-04] MEDS ORDERED: Vancomycin 125 MG/5 ML SOLN (ORAL/RECTAL) PO STA (18:08)
[2017-11-04] MEDS ORDERED: metroNIDAZOLE IV 500 mg/100 ml 500 MG/100 ML BAG ONE (18:30)
[2017-11-04] MEDS: Sodium Chloride 0.9% 1,000 ML IV SCH (22:00)
--- NOTE | 2017-11-04 22:19 | CP.PCM.HP ---
<Nova Willis - Last Filed: 11/05/17 03:28> History of Present Illness - History of Present Illness History of Present Illness: Patient is a 22 year old female with past medical history of chronic constipation and childhood asthma, presents to the ED sent from the clinic with complaints of abdominal pain. She reports having abdominal pain and stool with blood and mucous for approximately 10 days. She went to [facility] last week with the same complaints, stool studies were ordered, and patient was to follow up today for the results. The patient reports the abdominal pain is a pressure-like pain in her lower left and right abdomen. She has not tried anything at home to relieve the pain, nothing makes it worse or better. She states that since August , she has been treated with antibiotics for sinusitis, UTI, and an ear infection. Patient denies chest pain, dyspnea, cough, vomiting, fevers, headaches, leg pain/swelling, and dysuria. PMD: [facility] at [facility] PMHx: chronic constipation (resolved), childhood asthma (resolved) SurgHx: tonsillectomy 2004 FamHx: Mother- TIA, TB (resolved); Grandfather- colon cancer SocHx: denies tobacco and drug use; social etoh use; lives with mother in [place]. Allergies: NKDA Medications: none Present on Admission - Present on Admission Any Indicators Present on Admission: No Review of Systems - Constitutional Constitutional: Chills, Weight Loss (10lbs), Weakness. absent: Excessive Sweating, Fever, Headache - EENT Eyes: absent: Change in Vision Ears: absent: Dizziness Nose/Mouth/Throat: Sore Throat. absent: Dysphagia - Cardiovascular Cardiovascular: absent: Chest Pain, Dyspnea, Edema, Palpitations - Respiratory Respiratory: absent: Cough, Dyspnea - Gastrointestinal Gastrointestinal: Abdominal Pain, Hematemesis, Hematochezia, Loose Stools, Nausea. absent: Constipation, Diarrhea, Vomiting - Genitourinary Genitourinary: Urinary Frequency. absent: Dysuria, Hematuria - Musculoskeletal Musculoskeletal: absent: Back Pain, Myalgias - Integumentary Integumentary: absent: Rash - Neurological Neurological: absent: Dizziness, Headaches - Endocrine Endocrine: absent: Palpitations Past Patient History - Infectious Disease Hx of Infectious Diseases: None - Past Social History Smoking Status: Never Smoked - PULMONARY Hx Pneumonia: Yes - GENITOURINARY/GYNECOLOGICAL Hx Genitourinary Disorders: Yes Other/Comment: Yeast infections - PSYCHIATRIC Hx Substance Use: No - SURGICAL HISTORY Hx Tonsillectomy: Yes - ANESTHESIA Hx Anesthesia: Yes Hx Anesthesia Reactions: No Meds Allergies/Adverse Reactions: Allergies Allergy/AdvReac Type Severity Reaction Status Date / Time No Known Allergies Allergy Verified 11/04/17 14:21 Physical Exam - Constitutional Appears: No Acute Distress - Head Exam Head Exam: ATRAUMATIC, NORMAL INSPECTION - Eye Exam Eye Exam: EOMI, Normal appearance, PERRL - ENT Exam ENT Exam: Mucous Membranes Moist - Respiratory Exam Respiratory Exam: Clear to Auscultation Bilateral, NORMAL BREATHING PATTERN. absent: Rales, Rhonchi, Wheezes - Cardiovascular Exam Cardiovascular Exam: REGULAR RHYTHM, +S1, +S2 - GI/Abdominal Exam GI & Abdominal Exam: Hyperactive Bowel Sounds, Soft, Tenderness (LLQ,RLQ). absent: Distended, Firm, Guarding, Mass - Rectal Exam Rectal Exam: Deferred (rectal exam by ER physician) - Extremities Exam Extremities exam: Positive for: normal inspection, pedal pulses present. Negative for: pedal edema, tenderness - Back Exam Back exam: NORMAL INSPECTION. absent: CVA tenderness (L), CVA tenderness (R) - Neurological Exam Neurological exam: Alert, Oriented x3 - Psychiatric Exam Psychiatric exam: Normal Affect, Normal Mood - Skin Skin Exam: Dry, Intact, Normal Color, Warm Results - Vital Signs Recent Vital Signs: Last Vital Signs Temp 98.3 F 11/04/17 21:55 Pulse 82 11/04/17 21:55 Resp 18 11/04/17 21:55 BP 98/63 L 11/04/17 21:55 Pulse Ox 99 11/04/17 21:55 - Labs Result Diagrams: 11/04/17 14:55 11/04/17 14:55 Labs: Laboratory Results - last 24 hr 11/04/17 11/04/17 11/04/17 14:55 14:55 14:55 WBC 7.0 RBC 4.60 Hgb 13.9 Hct 40.2 MCV 87.4 MCH 30.2 MCHC 34.5 RDW 13.0 Plt Count 279 MPV 7.9 Neut % (Auto) 61.1 Lymph % (Auto) 28.8 Wirt % (Auto) 7.6 Eos % (Auto) 1.9 Baso % (Auto) 0.6 Neut # (Auto) 4.3 Lymph # (Auto) 2.0 Wirt # (Auto) 0.5 Eos # (Auto) 0.1 Baso # (Auto) 0.0 PT INR Sodium 142 Potassium 3.8 Chloride 105 Carbon Dioxide 21 L Anion Gap 19 BUN 11 Creatinine 0.7 Est GFR ( Amer) > 60 Est GFR (Non-Af Amer) > 60 Random Glucose 76 Calcium 9.4 Total Bilirubin 0.5 AST 32 ALT 24 Alkaline Phosphatase 91 Total Protein 8.6 H Albumin 4.8 Globulin 3.8 Albumin/Globulin Ratio 1.2 Lipase 127 Urine Color Yellow Urine Clarity Clear Urine pH 6.0 Ur Specific [place] 1.021 Urine Protein Negative Urine Glucose (UA) Normal Urine Ketones 1+ H Urine Blood Negative Urine Nitrate Negative Urine Bilirubin Negative Urine Urobilinogen Normal Ur Leukocyte Esterase Neg Urine WBC (Auto) 6 H Urine RBC (Auto) < 1 Ur Squamous Epith Cells 1 Urine HCG, Qual Negative Stool Occult Blood C. difficile Ag & Toxin 11/04/17 11/04/17 11/04/17 14:55 15:09 17:05 WBC RBC Hgb Hct MCV MCH MCHC RDW Plt Count MPV Neut % (Auto) Lymph % (Auto) Wirt % (Auto) Eos % (Auto) Baso % (Auto) Neut # (Auto) Lymph # (Auto) Wirt # (Auto) Eos # (Auto) Baso # (Auto) PT 14.1 H INR 1.3 Sodium Potassium Chloride Carbon Dioxide Anion Gap BUN Creatinine Est GFR ( Amer) Est GFR (Non-Af Amer) Random Glucose Calcium Total Bilirubin AST ALT Alkaline Phosphatase Total Protein Albumin Globulin Albumin/Globulin Ratio Lipase Urine Color Urine Clarity Urine pH Ur Specific [place] Urine Protein Urine Glucose (UA) Urine Ketones Urine Blood Urine Nitrate Urine Bilirubin Urine Urobilinogen Ur Leukocyte Esterase Urine WBC (Auto) Urine RBC (Auto) Ur Squamous Epith Cells Urine HCG, Qual Stool Occult Blood Negative C. difficile Ag & Toxin Positive H Assessment & Plan (1) C. difficile colitis Assessment and Plan: C.Diff: positive Abd/pelv CT: mild mural thickening of superior rectum; no other acute abnormality CXR: no acute pathology Afebrile, no leukocytosis Stool occult: negative UA: negative for infection ID consulted, Dr. Richardson, help appreciated Stool cx: f/u results Medications: - Vancomycin 125mg PO Q6hr - Zofran 4mg IV Q6h PRN for nausea - IV fluids - Tylenol 650mg PO Q6h PRN for pain/fever Status: Acute (2) Prophylactic measure Assessment and Plan: DVT: SCDs Ambulation as tolerated Regular diet Isolation Status: Acute <Checo Hammonds - Last Filed: 11/05/17 06:26> Results - Vital Signs Recent Vital Signs: Last Vital Signs Temp 98.4 F 11/04/17 23:25 Pulse 83 11/04/17 23:25 Resp 20 11/04/17 23:25 BP 99/50 L 11/04/17 23:25 Pulse Ox 100 11/04/17 23:36 - Labs Result Diagrams: 11/04/17 14:55 11/04/17 14:55 Labs: Laboratory Results - last 24 hr 11/04/17 11/04/17 11/04/17 14:55 14:55 14:55 WBC 7.0 RBC 4.60 Hgb 13.9 Hct 40.2 MCV 87.4 MCH 30.2 MCHC 34.5 RDW 13.0 Plt Count 279 MPV 7.9 Neut % (Auto) 61.1 Lymph % (Auto) 28.8 Wirt % (Auto) 7.6 Eos % (Auto) 1.9 Baso % (Auto) 0.6 Neut # (Auto) 4.3 Lymph # (Auto) 2.0 Wirt # (Auto) 0.5 Eos # (Auto) 0.1 Baso # (Auto) 0.0 PT INR Sodium 142 Potassium 3.8 Chloride 105 Carbon Dioxide 21 L Anion Gap 19 BUN 11 Creatinine 0.7 Est GFR ( Amer) > 60 Est GFR (Non-Af Amer) > 60 Random Glucose 76 Calcium 9.4 Total Bilirubin 0.5 AST 32 ALT 24 Alkaline Phosphatase 91 Total Protein 8.6 H Albumin 4.8 Globulin 3.8 Albumin/Globulin Ratio 1.2 Lipase 127 Urine Color Yellow Urine Clarity Clear Urine pH 6.0 Ur Specific [place] 1.021 Urine Protein Negative Urine Glucose (UA) Normal Urine Ketones 1+ H Urine Blood Negative Urine Nitrate Negative Urine Bilirubin Negative Urine Urobilinogen Normal Ur Leukocyte Esterase Neg Urine WBC (Auto) 6 H Urine RBC (Auto) < 1 Ur Squamous Epith Cells 1 Urine HCG, Qual Negative Stool Occult Blood C. difficile Ag & Toxin 11/04/17 11/04/17 11/04/17 14:55 15:09 17:05 WBC RBC Hgb Hct MCV MCH MCHC RDW Plt Count MPV Neut % (Auto) Lymph % (Auto) Wirt % (Auto) Eos % (Auto) Baso % (Auto) Neut # (Auto) Lymph # (Auto) Wirt # (Auto) Eos # (Auto) Baso # (Auto) PT 14.1 H INR 1.3 Sodium Potassium Chloride Carbon Dioxide Anion Gap BUN Creatinine Est GFR ( Amer) Est GFR (Non-Af Amer) Random Glucose Calcium Total Bilirubin AST ALT Alkaline Phosphatase Total Protein Albumin Globulin Albumin/Globulin Ratio Lipase Urine Color Urine Clarity Urine pH Ur Specific [place] Urine Protein Urine Glucose (UA) Urine Ketones Urine Blood Urine Nitrate Urine Bilirubin Urine Urobilinogen Ur Leukocyte Esterase Urine WBC (Auto) Urine RBC (Auto) Ur Squamous Epith Cells Urine HCG, Qual Stool Occult Blood Negative C. difficile Ag & Toxin Positive H Assessment & Plan - Date & Time Date: 11/05/17 (I have seen and examined the patient. I agree with the findings and plan of care as documented by Dr. Willis. Patient with C dif colitis. Vanco PO. ID consult. IVF. Monitor for acute changes.) Time: 06:25 Attending/Attestation - Attestation I have personally seen and examined this patient.: Yes I have fully participated in the care of the patient.: Yes I have reviewed all pertinent clinical information: Yes
[2017-11-05 07:42] LABS: BASO % 0.9 % (0.0-2.0); EOS # 0.2 K/uL (0.0-0.7); EOS % 4.2 % (0.0-4.0); LYMPH # 1.6 K/uL (1.0-4.3); MEAN CELL VOLUME 86.5 fL (81.0-99.0); MEAN CORPUSCULAR HEMOGLOBIN 30.7 pg (27.0-31.0); MEAN CORPUSCULAR HGB CONC 35.6 g/dL (33.0-37.0); MEAN PLATELET VOLUME 7.9 fL (7.2-11.7); MONO # 0.4 K/uL (0.0-0.8); MONO % 9.8 % (0.0-10.0); NEUT % 47.1 % (50.0-75.0); RBC 3.88 Mil/uL (3.80-5.20); RED CELL DISTRIBUTION WIDTH 13.1 % (11.5-14.5); WHITE BLOOD COUNT 4.2 K/uL (4.8-10.8)
[2017-11-05 08:10] LABS: HEMOGLOBIN 11.9 g/dL (11.0-16.0)
[2017-11-05 08:11] LABS: ALB/GLOB RATIO 1.3 (1.0-2.1); ALBUMIN 3.5 g/dL (3.5-5.0); ALT/SGPT 25 U/L (9-52); AST/SGOT 30 U/L (14-36); BLOOD UREA NITROGEN 6 mg/dL (7-17); CALCIUM 8.8 mg/dl (8.6-10.4); GFR AFRICAN-AMERICAN > 60; GFR NON-AFRICAN AMERICAN > 60
[2017-11-05] MEDS: Vancomycin 125 MG/5 ML SOLN (ORAL/RECTAL) PO SCH ×4 (09:22→21:57)
[2017-11-05] MEDS: Sodium Chloride 0.9% 1,000 ML IV SCH ×2 (09:24→20:13)
--- NOTE | 2017-11-05 14:24 | CP.PCM.PN ---
Subjective - Date & Time of Evaluation Date of Evaluation: 11/05/17 Time of Evaluation: 13:20 - Subjective Subjective: Medical Attending Note: Patient seen and examined this morning. Patient denies headache, denies chest pain, denies cough, denies shortness of breathe, reports abdominal discomfort, reports gas pains, denies constipation, denies dysuria. Patient reports she went to the bathroom about 10x yesterday and then today 4x today, and reports stool is watery-soft. Patient reports started to eat lunch today. Objective - Vital Signs/Intake and Output Vital Signs (last 24 hours): Temp Pulse Resp BP Pulse Ox 97.9 F 62 20 138/71 100 11/05/17 07:45 11/05/17 07:45 11/05/17 07:45 11/05/17 07:45 11/05/17 07:45 Intake and Output: 11/05/17 11/05/17 06:59 18:59 Intake Total 880 Balance 880 - Medications Medications: Current Medications Acetaminophen (Tylenol 325mg Tab) 650 mg PO Q6 PRN PRN Reason: Pain, Mild (1-3) Sodium Chloride (Sodium Chloride 0.9%) 1,000 mls @ 100 mls/hr IV .Q10H [facility] Last Admin: 11/05/17 09:24 Dose: 100 mls/hr Ondansetron HCl (Zofran Inj) 4 mg IVP Q6 PRN PRN Reason: Nausea/Vomiting Simethicone (Mylicon Liq) 40 mg PO QID [facility] Vancomycin HCl (Vancocin (Oral Or Rectal Use)) 125 mg PO QID [facility] PRN Reason: Protocol Last Admin: 11/05/17 13:13 Dose: 125 mg - Labs Labs: 11/05/17 07:26 11/05/17 07:26 PT 14.1 SECONDS (9.7-12.2) H 11/04/17 15:09 INR 1.3 11/04/17 15:09 - Constitutional Appears: Non-toxic, No Acute Distress - Head Exam Head Exam: NORMAL INSPECTION - Eye Exam Eye Exam: EOMI - ENT Exam ENT Exam: Mucous Membranes Moist - Respiratory Exam Respiratory Exam: Clear to Ausculation Bilateral, NORMAL BREATHING PATTERN. absent: Rales, Rhonchi, Wheezes - Cardiovascular Exam Cardiovascular Exam: REGULAR RHYTHM, +S1, +S2 - GI/Abdominal Exam GI & Abdominal Exam: Soft, Hyperactive Bowel Sounds. absent: Distended, Firm, Guarding, Rigid, Tenderness, Rebound - Extremities Exam Extremities Exam: absent: Pedal Edema, Tenderness - Back Exam Back Exam: absent: CVA tenderness (L), CVA tenderness (R), paraspinal tenderness - Neurological Exam Neurological Exam: Alert, Awake, Oriented x3 Neuro motor strength exam: Left Upper Extremity: 5, Right Upper Extremity: 5, Left Lower Extremity: 5, Right Lower Extremity: 5 - Psychiatric Exam Psychiatric exam: Normal Affect, Normal Mood - Skin Skin Exam: Dry, Intact, Normal Color, Warm Assessment and Plan (1) C. difficile colitis Assessment & Plan: * On admission: Flagyl 500mg IV X1 and Vancomycin 250mg PO X1 * Mild to moderate: WBC<15, no increase in serum creatinine * Start Vancomycin 125mg PO QID (active since 10/26/17) * + C dif; Ordered for repeat C. dif * Bacid 1 cap PO BID * Zofran 4mg IVQ6H PRN nausea/ vomitting * Simethicone 40mg PO QID PRN nausea/ vomitting * NS 100c/hr * CT Abdomen/Pelvis (11/05/17): mild mural thickening of the superior rectum common nonspecific. Consider evaluation with colonoscopy when clinically feasible. No other acute abnormality * Chest xray (11/04/17): no interval acute cardiopulmonary disease appreciated Status: Acute (2) Prophylactic measure Assessment & Plan: SCDS b/l No chemical anticoagulation needed Status: Acute
[2017-11-05] MEDS ORDERED: Aluminum Hydroxide/Magnesium Hydroxide Susp (30 mL) PO PRN (14:43)
[2017-11-05] MEDS: Lactobacillus Acidophilus 500 MU Cap PO SCH (18:32)
[2017-11-05] MEDS: Simethicone 40 mg/0.6 ml Liquid (30 ml) PO SCH ×2 (18:56→22:14)
[2017-11-06] MEDS: Sodium Chloride 0.9% 1,000 ML IV SCH ×3 (03:15→15:47)
[2017-11-06 08:13] LABS: BASO % 0.8 % (0.0-2.0); EOS # 0.2 K/uL (0.0-0.7); EOS % 4.6 % (0.0-4.0); HEMOGLOBIN 12.4 g/dL (11.0-16.0); LYMPH % 38.7 % (20.0-40.0); MEAN CELL VOLUME 87.7 fL (81.0-99.0); MEAN CORPUSCULAR HGB CONC 35.3 g/dL (33.0-37.0); MEAN PLATELET VOLUME 8.2 fL (7.2-11.7); MONO # 0.5 K/uL (0.0-0.8); NEUT # 2.4 K/uL (1.8-7.0); NEUT % 46.9 % (50.0-75.0); RBC 4.01 Mil/uL (3.80-5.20); RED CELL DISTRIBUTION WIDTH 13.1 % (11.5-14.5); WHITE BLOOD COUNT 5.2 K/uL (4.8-10.8)
[2017-11-06 08:19] LABS: ALB/GLOB RATIO 1.5 (1.0-2.1); ALBUMIN 4.1 g/dL (3.5-5.0); ALT/SGPT 22 U/L (9-52); AST/SGOT 22 U/L (14-36); BLOOD UREA NITROGEN 6 mg/dL (7-17); CALCIUM 8.7 mg/dl (8.6-10.4); GFR AFRICAN-AMERICAN > 60; GFR NON-AFRICAN AMERICAN > 60
[2017-11-06] MEDS: Lactobacillus Acidophilus 500 MU Cap PO SCH ×2 (09:49→18:00)
[2017-11-06] MEDS: Vancomycin 125 MG/5 ML SOLN (ORAL/RECTAL) PO SCH ×4 (09:49→23:09)
[2017-11-06] MEDS: Simethicone 80 mg Chewtab PO SCH ×4 (11:37→23:12)
--- NOTE | 2017-11-06 11:53 | CP.PCM.PN ---
<ChunZarina - Last Filed: 11/06/17 17:24> Subjective - Date & Time of Evaluation Date of Evaluation: 11/06/17 Time of Evaluation: 09:00 - Subjective Subjective: Medicine Progress Note Patient seen and examined at bedside. Patient reports of worsening abdominal pain after dinner last night. This morning she had one episode of diarrhea without blood. Patient still complains of weakness and lower abdominal pain. She denies having fever, chills, chest pain, nausea, vomiting, or urinary complaints. Objective - Vital Signs/Intake and Output Vital Signs (last 24 hours): Temp Pulse Resp BP Pulse Ox 97.8 F 58 L 20 98/60 L 99 11/06/17 07:48 11/06/17 07:48 11/06/17 07:48 11/06/17 07:48 11/06/17 07:48 Intake and Output: 11/06/17 11/06/17 06:59 18:59 Intake Total 1400 1880 Balance 1400 1880 - Medications Medications: Current Medications Acetaminophen (Tylenol 325mg Tab) 650 mg PO Q6 PRN PRN Reason: Pain, Mild (1-3) Al Hydrox/Mg Hydrox/Simethicone (Maalox 30 Ml) 30 ml PO Q6 PRN PRN Reason: Indigestion / Heartburn Sodium Chloride (Sodium Chloride 0.9%) 1,000 mls @ 100 mls/hr IV .Q10H [facility] Last Admin: 11/06/17 05:54 Dose: 100 mls/hr Lactobacillus Acidophilus (Bacid Acidophilus) 1 cap PO BID [facility] Last Admin: 11/06/17 09:49 Dose: 1 cap Ondansetron HCl (Zofran Inj) 4 mg IVP Q6 PRN PRN Reason: Nausea/Vomiting Simethicone (Mylicon Chew Tab) 80 mg PO QID [facility] Last Admin: 11/06/17 11:37 Dose: 80 mg Vancomycin HCl (Vancocin (Oral Or Rectal Use)) 125 mg PO QID [facility] PRN Reason: Protocol Last Admin: 11/06/17 09:49 Dose: 125 mg - Labs Labs: 11/06/17 07:47 11/06/17 07:47 PT 14.1 SECONDS (9.7-12.2) H 11/04/17 15:09 INR 1.3 11/04/17 15:09 - Additional Findings Additional findings: - Constitutional Appears: Non-toxic, No Acute Distress - Head Exam Head Exam: NORMAL INSPECTION - Eye Exam Eye Exam: EOMI - ENT Exam ENT Exam: Mucous Membranes Moist - Respiratory Exam Respiratory Exam: Clear to Ausculation Bilateral, NORMAL BREATHING PATTERN. absent: Rales, Rhonchi, Wheezes - Cardiovascular Exam Cardiovascular Exam: REGULAR RHYTHM, +S1, +S2 - GI/Abdominal Exam GI & Abdominal Exam: Soft, Hyperactive Bowel Sounds, Bilateral lower abdominal tenderness. absent: Distended, Firm, Guarding, Rigid, Rebound - Extremities Exam Extremities Exam: absent: Pedal Edema, Tenderness - Back Exam Back Exam: absent: CVA tenderness (L), CVA tenderness (R), paraspinal tenderness - Neurological Exam Neurological Exam: Alert, Awake, Oriented x3 - Psychiatric Exam Psychiatric exam: Normal Affect, Normal Mood - Skin Skin Exam: Dry, Intact, Normal Color, Warm Assessment and Plan - Assessment and Plan (Free Text) Assessment: C. difficile colitis -One episode of non-bloody diarrhea this morning -Flagyl 500mg IV X1 and Vancomycin 250mg PO X1 given in the ED -Afebrile, no leukocytosis since admission -Continue Vancomycin 125mg PO QID (active since 10/26/17) -Positive C diff, no need to repeat Ag per ID -Zofran 4mg IVQ6H PRN nausea/ vomitting -Simethicone 40mg PO QID PRN nausea/ vomitting -Maalox 30ml po Q6hr PRN -NS 100c/hr -CT Abdomen/Pelvis (11/05/17): mild mural thickening of the superior rectum common nonspecific. Consider evaluation with colonoscopy when clinically feasible. No other acute abnormality -Chest xray (11/04/17): no interval acute cardiopulmonary disease appreciated -Follow further ID recommendations Prophylactic measure -SCD -Lactobacillus <Alesia Moreno V - Last Filed: 11/06/17 20:59> Objective - Vital Signs/Intake and Output Vital Signs (last 24 hours): Temp Pulse Resp BP Pulse Ox 97.8 F 58 L 20 98/60 L 99 11/06/17 07:48 11/06/17 07:48 11/06/17 07:48 11/06/17 07:48 11/06/17 07:48 Intake and Output: 11/06/17 11/06/17 06:59 18:59 Intake Total 1400 1880 Balance 1400 1880 - Medications Medications: Current Medications Acetaminophen (Tylenol 325mg Tab) 650 mg PO Q6 PRN PRN Reason: Pain, Mild (1-3) Al Hydrox/Mg Hydrox/Simethicone (Maalox 30 Ml) 30 ml PO Q6 PRN PRN Reason: Indigestion / Heartburn Sodium Chloride (Sodium Chloride 0.9%) 1,000 mls @ 100 mls/hr IV .Q10H [facility] Last Admin: 11/06/17 05:54 Dose: 100 mls/hr Lactobacillus Acidophilus (Bacid Acidophilus) 1 cap PO BID [facility] Last Admin: 11/06/17 09:49 Dose: 1 cap Ondansetron HCl (Zofran Inj) 4 mg IVP Q6 PRN PRN Reason: Nausea/Vomiting Simethicone (Mylicon Chew Tab) 80 mg PO QID [facility] Last Admin: 11/06/17 11:37 Dose: 80 mg Vancomycin HCl (Vancocin (Oral Or Rectal Use)) 125 mg PO QID [facility] PRN Reason: Protocol Last Admin: 11/06/17 09:49 Dose: 125 mg - Labs Labs: 11/06/17 07:47 11/06/17 07:47 PT 14.1 SECONDS (9.7-12.2) H 11/04/17 15:09 INR 1.3 11/04/17 15:09 Assessment and Plan (1) C. difficile colitis Status: Acute (2) Prophylactic measure Status: Acute Attending/Attestation - Attestation I have personally seen and examined this patient.: Yes I have fully participated in the care of the patient.: Yes I have reviewed all pertinent clinical information, including history, physical exam and plan: Yes Notes (Text): Patient seen, examined and case discussed with day-time resident. Patient report she has had only one bowel movement overnight and has had one bowel movement this morning. Patient advised to take yogurt with her meals in the hospital to replenish GI estephania. We will follow up with infectious disease in regards to discharge planning. Please note: patient has only marvin care; vancomycin PO is worth 216 dollars per goodrx. Patient will need an affordable option prior to discharge. Patient report blood when she wiped herself following bowel movement yesterday. H/H is stable. Assessment and Plan (1) C. difficile colitis Assessment & Plan: * On admission: Flagyl 500mg IV X1 and Vancomycin 250mg PO X1 * Mild to moderate: WBC<15, no increase in serum creatinine * Start Vancomycin 125mg PO QID (active since 10/26/17) * + C dif; Repeat C. dif: positive * Bacid 1 cap PO BID * Zofran 4mg IVQ6H PRN nausea/ vomitting * Simethicone 40mg PO QID PRN nausea/ vomitting * NS 100c/hr * CT Abdomen/Pelvis (11/05/17): mild mural thickening of the superior rectum common nonspecific. Consider evaluation with colonoscopy when clinically feasible. No other acute abnormality * Chest xray (11/04/17): no interval acute cardiopulmonary disease appreciated * Infectious Disease (Dr. Sarabia covering for Dr. Richardson who is away) on board help appreciated * Advised to not repeat C. Dif since it will remain positive * Advised to observe patient for additional day since she is having abdominal discomfort and trying to tolerate diet; * F/u with Dr. Sarabia tomorrow to consider Flagyl on discharge. Status: Acute (2) Prophylactic measure Assessment & Plan: * SCDS b/l * No chemical anticoagulation needed Status: Acute
--- NOTE | 2017-11-06 17:43 | CP.PCM.CON ---
History of Present Illness - History of Present Illness History of Present Illness: 22 year old female presents to the ED sent from the clinic with complaints of abdominal pain and stool with blood and mucous for approximately 10 days She was found to have c diff toxin and ag + and admitted for c diff colitis she has had 2-3 courses of oral antibiotics for recent infections treated in ER PMHx: chronic constipation childhood asthma SurgHx: tonsillectomy 2004 FamHx: Mother- TIA, TB ; Grandfather- colon cancer SocHx: denies tobacco and drug use; social etoh use; lives with mother in [place]. Allergies: NKDA Medications: none Review of Systems - Review of Systems All systems: reviewed and no additional remarkable complaints except Past Patient History - Infectious Disease Hx of Infectious Diseases: None - Past Medical History & Family History Past Medical History?: Yes - Past Social History Smoking Status: Never Smoked - CARDIAC Hx Cardiac Disorders: No - PULMONARY Hx Pneumonia: Yes - NEUROLOGICAL Hx Neurological Disorder: No - HEENT Hx HEENT Problems: No - RENAL Hx Chronic Kidney Disease: No - ENDOCRINE/METABOLIC Hx Endocrine Disorders: No - HEMATOLOGICAL/ONCOLOGICAL Hx Blood Disorders: No - INTEGUMENTARY Hx Dermatological Problems: No - MUSCULOSKELETAL/RHEUMATOLOGICAL Hx Musculoskeletal Disorders: No Hx Falls: No - GASTROINTESTINAL Hx Gastrointestinal Disorders: Yes Hx Clostridium Difficile: Yes Hx Diarrhea: Yes - GENITOURINARY/GYNECOLOGICAL Hx Genitourinary Disorders: Yes Other/Comment: Yeast infections - PSYCHIATRIC Hx Substance Use: No - SURGICAL HISTORY Hx Tonsillectomy: Yes - ANESTHESIA Hx Anesthesia: Yes Hx Anesthesia Reactions: No Meds Allergies/Adverse Reactions: Allergies Allergy/AdvReac Type Severity Reaction Status Date / Time No Known Allergies Allergy Verified 11/04/17 14:21 - Medications Medications: Current Medications Acetaminophen (Tylenol 325mg Tab) 650 mg PO Q6 PRN PRN Reason: Pain, Mild (1-3) Al Hydrox/Mg Hydrox/Simethicone (Maalox 30 Ml) 30 ml PO Q6 PRN PRN Reason: Indigestion / Heartburn Sodium Chloride (Sodium Chloride 0.9%) 1,000 mls @ 100 mls/hr IV .Q10H [facility] Last Admin: 11/06/17 15:47 Dose: 100 mls/hr Lactobacillus Acidophilus (Bacid Acidophilus) 1 cap PO BID [facility] Last Admin: 11/06/17 09:49 Dose: 1 cap Ondansetron HCl (Zofran Inj) 4 mg IVP Q6 PRN PRN Reason: Nausea/Vomiting Simethicone (Mylicon Chew Tab) 80 mg PO QID [facility] Last Admin: 11/06/17 13:04 Dose: 80 mg Vancomycin HCl (Vancocin (Oral Or Rectal Use)) 125 mg PO QID [facility] PRN Reason: Protocol Last Admin: 11/06/17 14:05 Dose: 125 mg Physical Exam - Constitutional Appears: No Acute Distress - Head Exam Head Exam: ATRAUMATIC, NORMOCEPHALIC - Eye Exam Eye Exam: PERRL - ENT Exam ENT Exam: Mucous Membranes Dry - Neck Exam Neck exam: Negative for: Lymphadenopathy - Respiratory Exam Respiratory Exam: Decreased Breath Sounds, Clear to Auscultation Bilateral - Cardiovascular Exam Cardiovascular Exam: REGULAR RHYTHM - GI/Abdominal Exam GI & Abdominal Exam: Diminished Bowel Sounds, Distended, Soft, Tenderness - Rectal Exam Rectal Exam: Deferred - Exam Exam: NORMAL INSPECTION - Extremities Exam Extremities exam: Negative for: pedal edema - Back Exam Back exam: absent: CVA tenderness (L), CVA tenderness (R) - Neurological Exam Neurological exam: Alert, CN II-XII Intact, Oriented x3, Reflexes Normal - Psychiatric Exam Psychiatric exam: Normal Mood - Skin Skin Exam: Dry, Intact Results - Vital Signs Recent Vital Signs: Last Vital Signs Temp 98.0 F 11/06/17 15:06 Pulse 69 11/06/17 15:06 Resp 20 11/06/17 15:06 BP 103/61 11/06/17 15:06 Pulse Ox 99 11/06/17 15:06 - Labs Result Diagrams: 11/06/17 07:47 11/06/17 07:47 Labs: Laboratory Results - last 24 hr 11/05/17 11/06/17 11/06/17 20:01 07:47 07:47 WBC 5.2 RBC 4.01 Hgb 12.4 Hct 35.2 MCV 87.7 MCH 31.0 MCHC 35.3 RDW 13.1 Plt Count 277 MPV 8.2 Neut % (Auto) 46.9 L Lymph % (Auto) 38.7 [place] % (Auto) 9.0 Eos % (Auto) 4.6 H Baso % (Auto) 0.8 Neut # (Auto) 2.4 Lymph # (Auto) 2.0 [place] # (Auto) 0.5 Eos # (Auto) 0.2 Baso # (Auto) 0.0 Sodium 143 Potassium 3.7 Chloride 107 Carbon Dioxide 25 Anion Gap 14 BUN 6 L Creatinine 0.7 Est GFR ( Amer) > 60 Est GFR (Non-Af Amer) > 60 Random Glucose 82 Calcium 8.7 Total Bilirubin 0.4 AST 22 ALT 22 Alkaline Phosphatase 65 Total Protein 6.9 Albumin 4.1 Globulin 2.8 Albumin/Globulin Ratio 1.5 C. difficile Ag & Toxin Positive antigen 11/06/17 14:35 WBC RBC Hgb Hct MCV MCH MCHC RDW Plt Count MPV Neut % (Auto) Lymph % (Auto) [place] % (Auto) Eos % (Auto) Baso % (Auto) Neut # (Auto) Lymph # (Auto) [place] # (Auto) Eos # (Auto) Baso # (Auto) Sodium Potassium Chloride Carbon Dioxide Anion Gap BUN Creatinine Est GFR ( Amer) Est GFR (Non-Af Amer) Random Glucose Calcium Total Bilirubin AST ALT Alkaline Phosphatase Total Protein Albumin Globulin Albumin/Globulin Ratio C. difficile Ag & Toxin Negative Assessment & Plan (1) C. difficile colitis Status: Acute - Assessment and Plan (Free Text) Assessment: recc : 10-14 days PO Vanco Flagyl no longer recommended as treatment of choice would not repeat stool tests unless diarrhea does not resolve
[2017-11-07] MEDS: Sodium Chloride 0.9% 1,000 ML IV SCH ×4 (05:07→20:44)
[2017-11-07 07:29] LABS: BASO % 0.8 % (0.0-2.0); EOS # 0.2 K/uL (0.0-0.7); EOS % 3.9 % (0.0-4.0); LYMPH # 2.1 K/uL (1.0-4.3); LYMPH % 39.5 % (20.0-40.0); MEAN CELL VOLUME 88.2 fL (81.0-99.0); MEAN CORPUSCULAR HEMOGLOBIN 30.6 pg (27.0-31.0); MEAN CORPUSCULAR HGB CONC 34.7 g/dL (33.0-37.0); MONO # 0.5 K/uL (0.0-0.8); MONO % 8.8 % (0.0-10.0); NEUT # 2.5 K/uL (1.8-7.0); RBC 4.24 Mil/uL (3.80-5.20); RED CELL DISTRIBUTION WIDTH 13.3 % (11.5-14.5); WHITE BLOOD COUNT 5.3 K/uL (4.8-10.8)
[2017-11-07 07:41] LABS: ALB/GLOB RATIO 1.4 (1.0-2.1); ALT/SGPT 25 U/L (9-52); AST/SGOT 25 U/L (14-36); BLOOD UREA NITROGEN 7 mg/dL (7-17); CALCIUM 9.2 mg/dl (8.6-10.4); GFR AFRICAN-AMERICAN > 60; GFR NON-AFRICAN AMERICAN > 60
[2017-11-07 08:34] VITALS: RESP 20
[2017-11-07] MEDS: Lactobacillus Acidophilus 500 MU Cap PO SCH ×2 (10:10→17:07)
[2017-11-07] MEDS: Simethicone 80 mg Chewtab PO SCH ×4 (10:10→21:14)
[2017-11-07] MEDS: Vancomycin 125 MG/5 ML SOLN (ORAL/RECTAL) PO SCH ×4 (10:11→21:14)
--- NOTE | 2017-11-07 13:37 | CP.PCM.PN ---
<Ayesha Martínez - Last Filed: 11/07/17 13:27> Subjective - Date & Time of Evaluation Date of Evaluation: 11/07/17 Time of Evaluation: 09:00 - Subjective Subjective: Medicine Note for Hospitalist Service - Dr. Cuong Escalante Patient was seen and examined at bedside. Patient reports abdominal pain has improved, she is tolerating her diet without nausea or vomiting. Admits to normal, soft bowel movements. Denied fever, chills, headache, chest pain, SOB, n /v/d/c, or urinary symptoms. Objective - Vital Signs/Intake and Output Vital Signs (last 24 hours): Temp Pulse Resp BP Pulse Ox 98.5 F 69 20 104/65 100 11/07/17 08:33 11/07/17 08:33 11/07/17 08:33 11/07/17 08:33 11/07/17 08:33 Intake and Output: 11/07/17 11/07/17 06:59 18:59 Intake Total 600 Balance 600 - Medications Medications: Current Medications Acetaminophen (Tylenol 325mg Tab) 650 mg PO Q6 PRN PRN Reason: Pain, Mild (1-3) Al Hydrox/Mg Hydrox/Simethicone (Maalox 30 Ml) 30 ml PO Q6 PRN PRN Reason: Indigestion / Heartburn Sodium Chloride (Sodium Chloride 0.9%) 1,000 mls @ 100 mls/hr IV .Q10H [facility] Last Admin: 11/07/17 11:27 Dose: Not Given Lactobacillus Acidophilus (Bacid Acidophilus) 1 cap PO BID [facility] Last Admin: 11/07/17 10:10 Dose: 1 cap Ondansetron HCl (Zofran Inj) 4 mg IVP Q6 PRN PRN Reason: Nausea/Vomiting Simethicone (Mylicon Chew Tab) 80 mg PO QID [facility] Last Admin: 11/07/17 10:10 Dose: 80 mg Vancomycin HCl (Vancocin (Oral Or Rectal Use)) 125 mg PO QID [facility] PRN Reason: Protocol Last Admin: 11/07/17 10:11 Dose: 125 mg - Labs Labs: 11/07/17 07:20 11/07/17 07:20 PT 14.1 SECONDS (9.7-12.2) H 11/04/17 15:09 INR 1.3 11/04/17 15:09 - Additional Findings Additional findings: - Constitutional Appears: Non-toxic, No Acute Distress - Head Exam Head Exam: NORMAL INSPECTION - Eye Exam Eye Exam: EOMI - ENT Exam ENT Exam: Mucous Membranes Moist - Respiratory Exam Respiratory Exam: Clear to Ausculation Bilateral, NORMAL BREATHING PATTERN. absent: Rales, Rhonchi, Wheezes - Cardiovascular Exam Cardiovascular Exam: REGULAR RHYTHM, +S1, +S2 - GI/Abdominal Exam GI & Abdominal Exam: Soft, Normal Bowel Sounds, lower abdominal tenderness to deep palpation only. absent: Distended, Firm, Guarding, Rigid, Rebound - Extremities Exam Extremities Exam: absent: Pedal Edema, Tenderness - Back Exam Back Exam: absent: CVA tenderness (L), CVA tenderness (R), paraspinal tenderness - Neurological Exam Neurological Exam: Alert, Awake, Oriented x3 - Psychiatric Exam Psychiatric exam: Normal Affect, Normal Mood - Skin Skin Exam: Dry, Intact, Normal Color, Warm Assessment and Plan - Assessment and Plan (Free Text) Plan: C. difficile colitis Assessment & Plan: * On admission: Flagyl 500mg IV X1 and Vancomycin 250mg PO X1 * Mild to moderate: WBC<15, no increase in serum creatinine * + C diff; positive * Chest xray (11/04/17): no interval acute cardiopulmonary disease appreciated * CT Abdomen/Pelvis (11/05/17): mild mural thickening of the superior rectum common nonspecific. Consider evaluation with colonoscopy when clinically feasible. No other acute abnormality * Infectious Disease (Dr. Sarabia covering for Dr. Richardson who is away) on board [facility] for total 10-14 days Management: * NS 100c/hr * Start Vancomycin 125mg PO QID (active since 11/05/17), Lactobacillus BID * Zofran 4mg IVQ6H PRN nausea/ vomitting * Simethicone 40mg PO QID PRN nausea/ vomitting Prophylactic measure Assessment & Plan: * SCDS b/l * No chemical anticoagulation needed Disposition: Anticipate discharge 11/08/17 with Vancomycin 125mg PO QID x 9 mores until November 16, 2017 with 45 days of probiotics. Ayesha Horn Dr., DO, PGY-1 <Cuong Escalante - Last Filed: 11/07/17 20:14> Objective - Vital Signs/Intake and Output Vital Signs (last 24 hours): Temp Pulse Resp BP Pulse Ox 98.4 F 72 20 106/56 L 98 11/07/17 16:00 11/07/17 16:00 11/07/17 16:00 11/07/17 16:00 11/07/17 16:00 - Medications Medications: Current Medications Acetaminophen (Tylenol 325mg Tab) 650 mg PO Q6 PRN PRN Reason: Pain, Mild (1-3) Al Hydrox/Mg Hydrox/Simethicone (Maalox 30 Ml) 30 ml PO Q6 PRN PRN Reason: Indigestion / Heartburn Sodium Chloride (Sodium Chloride 0.9%) 1,000 mls @ 100 mls/hr IV .Q10H [facility] Last Admin: 11/07/17 13:36 Dose: 100 mls/hr Lactobacillus Acidophilus (Bacid Acidophilus) 1 cap PO BID [facility] Last Admin: 11/07/17 17:07 Dose: 1 cap Ondansetron HCl (Zofran Inj) 4 mg IVP Q6 PRN PRN Reason: Nausea/Vomiting Simethicone (Mylicon Chew Tab) 80 mg PO QID [facility] Last Admin: 11/07/17 17:07 Dose: 80 mg Vancomycin HCl (Vancocin (Oral Or Rectal Use)) 125 mg PO QID [facility] PRN Reason: Protocol Last Admin: 11/07/17 17:07 Dose: 125 mg - Labs Labs: 11/07/17 07:20 11/07/17 07:20 PT 14.1 SECONDS (9.7-12.2) H 11/04/17 15:09 INR 1.3 11/04/17 15:09 Attending/Attestation - Attestation I have personally seen and examined this patient.: Yes I have fully participated in the care of the patient.: Yes I have reviewed all pertinent clinical information, including history, physical exam and plan: Yes Notes (Text): 11/07/17 20:14 Patient was seen and examined with resident Dr. Martínez and plan of care was discussed. Cuong Escalante D.O.
[2017-11-08 00:38] VITALS: O2SAT 99
[2017-11-08] MEDS: Sodium Chloride 0.9% 1,000 ML IV SCH ×2 (03:11→06:11)
--- NOTE | 2017-11-08 07:02 | CP.PCM.DIS ---
<Ayesha Martínez - Last Filed: 11/08/17 06:58> Provider - Provider Date of Admission: 11/04/17 18:12 Attending physician: Cuong Escalante MD Time Spent in preparation of Discharge (in minutes): 55 Hospital Course - Lab Results Lab Results: Micro Results 11/04/17 17:05 Stool Stool Culture - Final NO SALMONELLA, SHIGELLA OR CAMPYLOBACTER ISOLATED. Most Recent Lab Values WBC 5.3 K/uL (4.8-10.8) 11/07/17 07:20 RBC 4.24 Mil/uL (3.80-5.20) 11/07/17 07:20 Hgb 13.0 g/dL (11.0-16.0) 11/07/17 07:20 Hct 37.5 % (34.0-47.0) 11/07/17 07:20 MCV 88.2 fL (81.0-99.0) 11/07/17 07:20 MCH 30.6 pg (27.0-31.0) 11/07/17 07:20 MCHC 34.7 g/dL (33.0-37.0) 11/07/17 07:20 RDW 13.3 % (11.5-14.5) 11/07/17 07:20 Plt Count 272 K/uL (130-400) 11/07/17 07:20 MPV 8.0 fL (7.2-11.7) 11/07/17 07:20 Neut % (Auto) 47.0 % (50.0-75.0) L 11/07/17 07:20 Lymph % (Auto) 39.5 % (20.0-40.0) 11/07/17 07:20 [place] % (Auto) 8.8 % (0.0-10.0) 11/07/17 07:20 Eos % (Auto) 3.9 % (0.0-4.0) 11/07/17 07:20 Baso % (Auto) 0.8 % (0.0-2.0) 11/07/17 07:20 Neut # (Auto) 2.5 K/uL (1.8-7.0) 11/07/17 07:20 Lymph # (Auto) 2.1 K/uL (1.0-4.3) 11/07/17 07:20 [place] # (Auto) 0.5 K/uL (0.0-0.8) 11/07/17 07:20 Eos # (Auto) 0.2 K/uL (0.0-0.7) 11/07/17 07:20 Baso # (Auto) 0.0 K/uL (0.0-0.2) 11/07/17 07:20 PT 14.1 SECONDS (9.7-12.2) H 11/04/17 15:09 INR 1.3 11/04/17 15:09 Sodium 141 mmol/L (132-148) 11/07/17 07:20 Potassium 4.0 mmol/L (3.6-5.2) 11/07/17 07:20 Chloride 107 mmol/L (98-107) 11/07/17 07:20 Carbon Dioxide 25 mmol/L (22-30) 11/07/17 07:20 Anion Gap 14 (10-20) 11/07/17 07:20 BUN 7 mg/dL (7-17) 11/07/17 07:20 Creatinine 0.7 mg/dL (0.7-1.2) 11/07/17 07:20 Est GFR ( Amer) > 60 11/07/17 07:20 Est GFR (Non-Af Amer) > 60 11/07/17 07:20 Random Glucose 92 mg/dL (65-105) 11/07/17 07:20 Calcium 9.2 mg/dl (8.6-10.4) 11/07/17 07:20 Total Bilirubin 0.4 mg/dL (0.2-1.3) 11/07/17 07:20 AST 25 U/L (14-36) 11/07/17 07:20 ALT 25 U/L (9-52) 11/07/17 07:20 Alkaline Phosphatase 64 U/L (38-126) 11/07/17 07:20 Total Protein 6.9 g/dL (6.3-8.3) 11/07/17 07:20 Albumin 4.0 g/dL (3.5-5.0) 11/07/17 07:20 Globulin 2.9 gm/dL (2.2-3.9) 11/07/17 07:20 Albumin/Globulin Ratio 1.4 (1.0-2.1) 11/07/17 07:20 Lipase 127 U/L (23-300) 11/04/17 14:55 Urine Color Yellow (YELLOW) 11/04/17 14:55 Urine Clarity Clear (Clear) 11/04/17 14:55 Urine pH 6.0 (5.0-8.0) 11/04/17 14:55 Ur Specific [place] 1.021 (1.003-1.030) 11/04/17 14:55 Urine Protein Negative mg/dL (NEGATIVE) 11/04/17 14:55 Urine Glucose (UA) Normal mg/dL (Normal) 11/04/17 14:55 Urine Ketones 1+ mg/dL (NEGATIVE) H 11/04/17 14:55 Urine Blood Negative (NEGATIVE) 11/04/17 14:55 Urine Nitrate Negative (NEGATIVE) 11/04/17 14:55 Urine Bilirubin Negative (NEGATIVE) 11/04/17 14:55 Urine Urobilinogen Normal mg/dL (0.2-1.0) 11/04/17 14:55 Ur Leukocyte Esterase Neg Sarah/uL (Negative) 11/04/17 14:55 Urine WBC (Auto) 6 /hpf (0-5) H 11/04/17 14:55 Urine RBC (Auto) < 1 /hpf (0-3) 11/04/17 14:55 Ur Squamous Epith Cells 1 /hpf (0-5) 11/04/17 14:55 Urine HCG, Qual Negative (NEGATIVE) 11/04/17 14:55 Stool Occult Blood Negative (NEGATIVE) 11/04/17 14:55 C. difficile Ag & Toxin Negative (NEGATIVE) 11/06/17 14:35 - Hospital Course Hospital Course: Upon Admission Patient is a 22 year old female with past medical history of chronic constipation and childhood asthma, presents to the ED sent from the clinic with complaints of abdominal pain. She reports having abdominal pain and stool with blood and mucous for approximately 10 days. She went to [facility] last week with the same complaints, stool studies were ordered, and patient was to follow up today for the results. The patient reports the abdominal pain is a pressure-like pain in her lower left and right abdomen. She has not tried anything at home to relieve the pain, nothing makes it worse or better. She states that since August , she has been treated with antibiotics for sinusitis, UTI, and an ear infection. Patient denies chest pain, dyspnea, cough, vomiting, fevers, headaches, leg pain/swelling, and dysuria. PMD: NHC at [facility] PMHx: chronic constipation (resolved), childhood asthma (resolved) SurgHx: tonsillectomy 2004 FamHx: Mother- TIA, TB (resolved); Grandfather- colon cancer SocHx: denies tobacco and drug use; social etoh use; lives with mother in [place]. Allergies: NKDA Medications: none Throughout Hospital Course C. difficile colitis Assessment & Plan: * On admission: Flagyl 500mg IV X1 and Vancomycin 250mg PO X1 * Mild to moderate: WBC<15, no increase in serum creatinine * + C diff; positive * Chest xray (11/04/17): no interval acute cardiopulmonary disease appreciated * CT Abdomen/Pelvis (11/05/17): mild mural thickening of the superior rectum common nonspecific. Consider evaluation with colonoscopy when clinically feasible. No other acute abnormality * Infectious Disease (Dr. Sarabia covering for Dr. Richardson who is away) on board [facility] for total 10-14 days Management: * NS 100c/hr * Start Vancomycin 125mg PO QID (active since 11/05/17), Lactobacillus BID * Zofran 4mg IVQ6H PRN nausea/ vomitting * Simethicone 40mg PO QID PRN nausea/ vomiting Discharge 11/08/17 with Vancomycin 125mg PO QID x 9 mores until November 16, 2017 with 45 days of probiotics. Please review EMR for full record, as this is a brief summary of the patient's hospital course. Discharge Exam - Additional Findings Additional findings: - Constitutional Appears: Non-toxic, No Acute Distress - Head Exam Head Exam: NORMAL INSPECTION - Eye Exam Eye Exam: EOMI - ENT Exam ENT Exam: Mucous Membranes Moist - Respiratory Exam Respiratory Exam: Clear to Ausculation Bilateral, NORMAL BREATHING PATTERN. absent: Rales, Rhonchi, Wheezes - Cardiovascular Exam Cardiovascular Exam: REGULAR RHYTHM, +S1, +S2 - GI/Abdominal Exam GI & Abdominal Exam: Soft, Normal Bowel Sounds, lower abdominal tenderness to deep palpation only. absent: Distended, Firm, Guarding, Rigid, Rebound - Extremities Exam Extremities Exam: absent: Pedal Edema, Tenderness - Back Exam Back Exam: absent: CVA tenderness (L), CVA tenderness (R), paraspinal tenderness - Neurological Exam Neurological Exam: Alert, Awake, Oriented x3 - Psychiatric Exam Psychiatric exam: Normal Affect, Normal Mood - Skin Skin Exam: Dry, Intact, Normal Color, Warm Discharge Plan - Discharge Medications Prescriptions: Lactobacillus Acidophilus [Bacid Acidophilus] 1 cap PO BID #90 cap Vancomycin HCl [Vancocin 125 MG Cap] 125 mg PO QID #36 cap - Follow Up Plan Condition: STABLE Disposition: HOME/ ROUTINE Instructions: Clostridium difficile (DC), Lactobacillus, Vancomycin Additional Instructions: You will be taking the following medications: Vancomycin 125mg by mouth 4 times a day (7am, 1pm, 7pm, 1am) until November 16, 2017. Please take the Lactobacillus probiotic every 12 hours (PLEASE TAKE 2 hours before you take vancomycin (5am, 5pm) until December 23, 2017. This is to protect the good bacteria in your stomach. Please hydrate yourself, advance your diet as you tolerate it. Please follow up in the [facility] within 1-2 weeks for follow up. Please take care and be well. Referrals: [facility] at [facility] [Outside] Heber Sarabia MD [Staff Provider] - <Cuong Escalante - Last Filed: 11/08/17 18:48> Provider - Provider Date of Admission: 11/04/17 18:12 Attending physician: Cuong Escalante MD Time Spent in preparation of Discharge (in minutes): 40 Hospital Course - Lab Results Lab Results: Micro Results 11/04/17 17:05 Stool Stool Culture - Final NO SALMONELLA, SHIGELLA OR CAMPYLOBACTER ISOLATED. Most Recent Lab Values WBC 5.5 K/uL (4.8-10.8) 11/08/17 07:00 RBC 4.28 Mil/uL (3.80-5.20) 11/08/17 07:00 Hgb 13.1 g/dL (11.0-16.0) 11/08/17 07:00 Hct 37.5 % (34.0-47.0) 11/08/17 07:00 MCV 87.7 fL (81.0-99.0) 11/08/17 07:00 MCH 30.5 pg (27.0-31.0) 11/08/17 07:00 MCHC 34.8 g/dL (33.0-37.0) 11/08/17 07:00 RDW 13.1 % (11.5-14.5) 11/08/17 07:00 Plt Count 278 K/uL (130-400) 11/08/17 07:00 MPV 8.1 fL (7.2-11.7) 11/08/17 07:00 Neut % (Auto) 56.1 % (50.0-75.0) 11/08/17 07:00 Lymph % (Auto) 33.3 % (20.0-40.0) 11/08/17 07:00 [place] % (Auto) 6.8 % (0.0-10.0) 11/08/17 07:00 Eos % (Auto) 3.2 % (0.0-4.0) 11/08/17 07:00 Baso % (Auto) 0.6 % (0.0-2.0) 11/08/17 07:00 Neut # (Auto) 3.1 K/uL (1.8-7.0) 11/08/17 07:00 Lymph # (Auto) 1.8 K/uL (1.0-4.3) 11/08/17 07:00 [place] # (Auto) 0.4 K/uL (0.0-0.8) 11/08/17 07:00 Eos # (Auto) 0.2 K/uL (0.0-0.7) 11/08/17 07:00 Baso # (Auto) 0.0 K/uL (0.0-0.2) 11/08/17 07:00 PT 14.1 SECONDS (9.7-12.2) H 11/04/17 15:09 INR 1.3 11/04/17 15:09 Sodium 142 mmol/L (132-148) 11/08/17 07:00 Potassium 3.8 mmol/L (3.6-5.2) 11/08/17 07:00 Chloride 107 mmol/L (98-107) 11/08/17 07:00 Carbon Dioxide 23 mmol/L (22-30) 11/08/17 07:00 Anion Gap 15 (10-20) 11/08/17 07:00 BUN 8 mg/dL (7-17) 11/08/17 07:00 Creatinine 0.7 mg/dL (0.7-1.2) 11/08/17 07:00 Est GFR ( Amer) > 60 11/08/17 07:00 Est GFR (Non-Af Amer) > 60 11/08/17 07:00 Random Glucose 91 mg/dL (65-105) 11/08/17 07:00 Calcium 9.1 mg/dl (8.6-10.4) 11/08/17 07:00 Total Bilirubin 0.3 mg/dL (0.2-1.3) 11/08/17 07:00 AST 21 U/L (14-36) 11/08/17 07:00 ALT 22 U/L (9-52) 11/08/17 07:00 Alkaline Phosphatase 65 U/L (38-126) 11/08/17 07:00 Total Protein 7.1 g/dL (6.3-8.3) 11/08/17 07:00 Albumin 4.0 g/dL (3.5-5.0) 11/08/17 07:00 Globulin 3.0 gm/dL (2.2-3.9) 11/08/17 07:00 Albumin/Globulin Ratio 1.3 (1.0-2.1) 11/08/17 07:00 Lipase 127 U/L (23-300) 11/04/17 14:55 Urine Color Yellow (YELLOW) 11/04/17 14:55 Urine Clarity Clear (Clear) 11/04/17 14:55 Urine pH 6.0 (5.0-8.0) 11/04/17 14:55 Ur Specific [place] 1.021 (1.003-1.030) 11/04/17 14:55 Urine Protein Negative mg/dL (NEGATIVE) 11/04/17 14:55 Urine Glucose (UA) Normal mg/dL (Normal) 11/04/17 14:55 Urine Ketones 1+ mg/dL (NEGATIVE) H 11/04/17 14:55 Urine Blood Negative (NEGATIVE) 11/04/17 14:55 Urine Nitrate Negative (NEGATIVE) 11/04/17 14:55 Urine Bilirubin Negative (NEGATIVE) 11/04/17 14:55 Urine Urobilinogen Normal mg/dL (0.2-1.0) 11/04/17 14:55 Ur Leukocyte Esterase Neg Sarah/uL (Negative) 11/04/17 14:55 Urine WBC (Auto) 6 /hpf (0-5) H 11/04/17 14:55 Urine RBC (Auto) < 1 /hpf (0-3) 11/04/17 14:55 Ur Squamous Epith Cells 1 /hpf (0-5) 11/04/17 14:55 Urine HCG, Qual Negative (NEGATIVE) 11/04/17 14:55 Stool Occult Blood Negative (NEGATIVE) 11/04/17 14:55 C. difficile Ag & Toxin Negative (NEGATIVE) 11/06/17 14:35 Attending/Attestation - Attestation I have personally seen and examined this patient.: Yes I have fully participated in the care of the patient.: Yes I have reviewed all pertinent clinical information, including history, physical exam and plan: Yes Notes (Text): 11/08/17 18:47 Patient's bowel movements are now soft and no more than 2x/day and last bowel movement was 11/07/17. Abdominal pain is improving. I went over discharge instructions with patient and she expressed understanding. Cuong Escalante D.O.
[2017-11-08 07:26] LABS: BASO % 0.6 % (0.0-2.0); EOS # 0.2 K/uL (0.0-0.7); EOS % 3.2 % (0.0-4.0); HEMOGLOBIN 13.1 g/dL (11.0-16.0); LYMPH # 1.8 K/uL (1.0-4.3); LYMPH % 33.3 % (20.0-40.0); MEAN CELL VOLUME 87.7 fL (81.0-99.0); MEAN CORPUSCULAR HEMOGLOBIN 30.5 pg (27.0-31.0); MEAN CORPUSCULAR HGB CONC 34.8 g/dL (33.0-37.0); MEAN PLATELET VOLUME 8.1 fL (7.2-11.7); MONO # 0.4 K/uL (0.0-0.8); MONO % 6.8 % (0.0-10.0); NEUT # 3.1 K/uL (1.8-7.0); NEUT % 56.1 % (50.0-75.0); NRBC % 0.1 % (0.0-2.0); RBC 4.28 Mil/uL (3.80-5.20); RED CELL DISTRIBUTION WIDTH 13.1 % (11.5-14.5); WHITE BLOOD COUNT 5.5 K/uL (4.8-10.8)
[2017-11-08 07:44] LABS: ALB/GLOB RATIO 1.3 (1.0-2.1); ALT/SGPT 22 U/L (9-52); AST/SGOT 21 U/L (14-36); BLOOD UREA NITROGEN 8 mg/dL (7-17); CALCIUM 9.1 mg/dl (8.6-10.4); GFR AFRICAN-AMERICAN > 60; GFR NON-AFRICAN AMERICAN > 60
[2017-11-08 08:17] VITALS: BP 99/57; PULSE 58; TEMP 98.1
[2017-11-08] MEDS: Lactobacillus Acidophilus 500 MU Cap PO SCH (09:45)
[2017-11-08] MEDS: Simethicone 80 mg Chewtab PO SCH ×2 (09:45→14:14)
[2017-11-08] MEDS: Vancomycin 125 MG/5 ML SOLN (ORAL/RECTAL) PO SCH ×2 (09:46→14:15)
--- NOTE | 2017-11-08 11:06 | CP.PCM.PN ---
Subjective - Date & Time of Evaluation Date of Evaluation: 11/08/17 Time of Evaluation: 09:00 - Subjective Subjective: DISCUSSED ON ROUNDS FOR D/C HOME Objective - Vital Signs/Intake and Output Vital Signs (last 24 hours): Temp Pulse Resp BP Pulse Ox 98.1 F 58 L 20 99/57 L 99 11/08/17 08:15 11/08/17 08:15 11/08/17 08:15 11/08/17 08:15 11/08/17 08:15 - Medications Medications: Current Medications Acetaminophen (Tylenol 325mg Tab) 650 mg PO Q6 PRN PRN Reason: Pain, Mild (1-3) Al Hydrox/Mg Hydrox/Simethicone (Maalox 30 Ml) 30 ml PO Q6 PRN PRN Reason: Indigestion / Heartburn Sodium Chloride (Sodium Chloride 0.9%) 1,000 mls @ 100 mls/hr IV .Q10H [facility] Last Admin: 11/08/17 06:11 Dose: Not Given Lactobacillus Acidophilus (Bacid Acidophilus) 1 cap PO BID [facility] Last Admin: 11/08/17 09:45 Dose: 1 cap Ondansetron HCl (Zofran Inj) 4 mg IVP Q6 PRN PRN Reason: Nausea/Vomiting Simethicone (Mylicon Chew Tab) 80 mg PO QID [facility] Last Admin: 11/08/17 09:45 Dose: 80 mg Vancomycin HCl (Vancocin (Oral Or Rectal Use)) 125 mg PO QID [facility] PRN Reason: Protocol Last Admin: 11/08/17 09:46 Dose: 125 mg - Labs Labs: 11/08/17 07:00 11/08/17 07:00 PT 14.1 SECONDS (9.7-12.2) H 11/04/17 15:09 INR 1.3 11/04/17 15:09 Assessment and Plan (1) C. difficile colitis Status: Acute
== END 2017-11-08 14:16 | disposition home or self-care (01) | DRG 895 ==
LOC: C.ER 14:04 → C.9E 18:12 → C.6T 21:38
PROVIDERS: ADMIT Internal Medicine; ATTEND Family Medicine
DX: A04.72 Enterocolitis due to Clostridium difficile, not specified as recurrent (principal); K92.1 Melena

== ENCOUNTER 2017-11-25 14:02 | Emergency (ER) | payer OTHER ==
[2017-11-25 14:03] VITALS: BMI 27.4
[2017-11-25 14:10] VITALS: RESP 18; O2SAT 98
[2017-11-25] MEDS ORDERED: Sodium Chloride 0.9% 1,000 ML IV ONE (14:33)
[2017-11-25 14:42] LABS: BASO % 0.4 % (0.0-2.0); EOS # 0.1 K/uL (0.0-0.7); EOS % 0.6 % (0.0-4.0); HEMOGLOBIN 13.9 g/dL (11.0-16.0); LYMPH # 2.7 K/uL (1.0-4.3); LYMPH % 32.5 % (20.0-40.0); MEAN CELL VOLUME 87.3 fL (81.0-99.0); MEAN CORPUSCULAR HEMOGLOBIN 29.7 pg (27.0-31.0); MEAN PLATELET VOLUME 7.3 fL (7.2-11.7); MONO # 0.7 K/uL (0.0-0.8); MONO % 8.3 % (0.0-10.0); NEUT # 4.8 K/uL (1.8-7.0); NEUT % 58.2 % (50.0-75.0); RBC 4.69 Mil/uL (3.80-5.20); RED CELL DISTRIBUTION WIDTH 13.6 % (11.5-14.5); WHITE BLOOD COUNT 8.3 K/uL (4.8-10.8)
[2017-11-25] MEDS ORDERED: Sodium Chloride 0.9% 1,000 ML ONE (14:52)
[2017-11-25 15:09] LABS: ALB/GLOB RATIO 1.5 (1.0-2.1); ALBUMIN 5.2 g/dL (3.5-5.0); ALT/SGPT 33 U/L (9-52); AST/SGOT 32 U/L (14-36); BLOOD UREA NITROGEN 14 mg/dL (7-17); CALCIUM 9.8 mg/dl (8.6-10.4); GFR AFRICAN-AMERICAN > 60; GFR NON-AFRICAN AMERICAN > 60; LIPASE 138 U/L (23-300)
[2017-11-25 15:13] LABS: SQUAMOUS EPITHIAL 2 /hpf (0-5); URINE BILIRUBIN NEGATIVE (NEGATIVE); URINE BLOOD 1+ (NEGATIVE); URINE CLARITY Clear (Clear); URINE COLOR Yellow (YELLOW); URINE GLUCOSE (UA) NORMAL (Normal); URINE LEUKOCYTE ESTERASE NEG Leu/uL (Negative); URINE PROTEIN NEGATIVE (NEGATIVE); URINE UROBILINOGEN NORMAL mg/dL (0.2-1.0)
[2017-11-25 15:17] LABS: HCG,QUALITATIVE URINE NEGATIVE (NEGATIVE)
[2017-11-25 15:30] LABS: BARBITURATES, UR NEGATIVE (NEGATIVE); BENZODIAZEPINES, UR NEGATIVE (NEGATIVE); OPIATES, UR NEGATIVE (NEGATIVE); PHENCYCLIDINE, UR NEGATIVE (NEGATIVE)
--- NOTE | 2017-11-25 15:47 | RAD ---
PROCEDURE: Radiographs of the chest and abdomen (obstructive series) HISTORY: Abdominal pain COMPARISON: No prior. TECHNIQUE: AP radiograph of the chest, with upright and supine radiographs of the abdomen. FINDINGS: CHEST: Lungs: The lungs are well inflated and. Cardiovascular: Normal size heart. No pulmonary vascular congestion. Pleura: No pleural fluid. No pneumothorax. Other findings: None. ABDOMEN AND PELVIS: Bowel: There is moderate amount of stool in the colon. No bowel dilatation or obstruction. Free air: None. Bones: Unremarkable. Other findings: None. IMPRESSION: Moderate stool burden in the colon. Nonobstructive bowel-gas pattern. Clear lungs.
--- NOTE | 2017-11-25 17:02 | C.PDOC ---
History Of Present Illness 22 y/o female presents to ED with c/o mucoid stools consistent with prior episode of c-diff. Patient was admitted to hospital recently for c-diff and discharged on 11/08. Patient completed 14 days of vancomycin on 11/19 and reports chronic constipation for 3 years. Patient denies fever, chills, nausea, vomiting or any other complaints at this time. Time Seen by Provider: 11/25/17 14:32 Chief Complaint (Nursing): Abdominal Pain History Per: Patient History/Exam Limitations: no limitations Onset/Duration Of Symptoms: Days Current Symptoms Are (Timing): Still Present Past Medical History Reviewed: Historical Data, Nursing Documentation, Vital Signs Vital Signs: Last Vital Signs Temp 98.4 F 11/25/17 14:06 Pulse 78 11/25/17 14:06 Resp 18 11/25/17 14:06 BP 135/77 11/25/17 14:06 Pulse Ox 98 11/25/17 17:24 - Medical History PMH: No Chronic Diseases, Pneumonia Surgical History: Tonsillectomy Family History: States: No Known Family Hx - Social History Hx Tobacco Use: No Hx Alcohol Use: No Hx Substance Use: No - Immunization History Hx Tetanus Toxoid Vaccination: No Hx Influenza Vaccination: No Hx Pneumococcal Vaccination: No Review Of Systems Constitutional: Negative for: Fever, Chills Cardiovascular: Negative for: Chest Pain Respiratory: Negative for: Shortness of Breath Gastrointestinal: Positive for: Other (mucoid stool). Negative for: Nausea, Vomiting, Abdominal Pain Skin: Negative for: Rash Physical Exam - Physical Exam Appears: Non-toxic, No Acute Distress Skin: Warm, Dry, No Rash Head: Atraumatic, Normacephalic Eye(s): bilateral: Normal Inspection Oral Mucosa: Moist Neck: Normal ROM, Supple Cardiovascular: Rhythm Regular Respiratory: Normal Breath Sounds, No Rales, No Rhonchi, No Wheezing Gastrointestinal/Abdominal: Bowel Sounds (Diminished), Soft, No Tenderness, No Guarding, No Rebound, Other (dull to percussion) Neurological/Psych: Oriented x3, Normal Speech, Normal Cognition ED Course And Treatment - Laboratory Results Result Diagrams: 11/25/17 14:39 11/25/17 14:39 Lab Interpretation: Normal (ua neg, c-diff toxin neg, UA/tox neg.) Urine POC: Negative O2 Sat by Pulse Oximetry: 98 (RA) Pulse Ox Interpretation: Normal - Radiology CXR: Interpreted by Me CXR Interpretation: Yes: No Acute Disease - Other Rad abd x 2 X-Ray: Interpreted by Me (+FOS) Reevaluation Time: 16:59 Reassessment Condition: Improved Medical Decision Making Medical Decision Making: chronic constipation and NORMAL WBC's and c-diff NEG with LOW susp of colits acute on chronic constipation may be, at least partly, related to newly introduced Faroese diet, and constipating diet with little/no exercise. scant stool/mucoid more c/w colonic irritation from chronic constipation. NO high volume dark foul smelling stools to suspect C-diff diet and exercise educated. Disposition Doctor Will See Patient In The: Office Counseled Patient/Family Regarding: Studies Performed, Diagnosis - Disposition Referrals: [facility] [Outside] [facility] [Outside] [facility] [Outside] Heber Sarabia MD [Staff Provider] - Disposition: HOME/ ROUTINE Disposition Time: 17:02 Condition: GOOD Additional Instructions: Estrenemiento: Rian naina botella de Citrato de Magnesio (purgante) y re-evalua gracia molestia del abdomen despues de usar el bobby 2-3 veces Repita el purgante catia necessario Cambios de dieta y ejercisio: 7 frutas y verduras crudas diarios (por lo menos 1 manzana) Naina ensalada cuenta catia 2 verduras Inez diario: ronen crudo MENOS arros, habichuelas, carne, ricardo, queso, junk food NO come NADA FRITO rian juan luis mas agua Power Walk: 5 mead por semana x 45 minutos Sigue en la [facility] (gratis) catia necessario par considerar naina referencia al Gastroenterologo porque de gracia historia familiar de cancer del colon y estomago. Instructions: Constipation in Adults Forms: [facility] (Thai) Print Language: MALAYSIAN - Clinical Impression Clinical Impression: Generalized colicky abdominal pain - Scribe Statement The provider has reviewed the documentation as recorded by the Scribe Negro English All medical record entries made by the Scribe were at my direction and personally dictated by me. I have reviewed the chart and agree that the record accurately reflects my personal performance of the history, physical exam, medical decision making, and the department course for this patient. I have also personally directed, reviewed, and agree with the discharge instructions and disposition.
[2017-11-25 17:32] VITALS: BP 126/75; PULSE 84; TEMP 98.2
== END 2017-11-25 17:31 | disposition home or self-care (01) ==
LOC: C.ER 14:02
DX: R10.84 Generalized abdominal pain (principal)
CPT/HCPCS: 74022; 80053; 80320; 80324; 80345; 80346; 80349; 80353; 80358; 80361; 81001; 83690; 83992; 84703; 85025; 87230; 96360; 99285; J7030

== ENCOUNTER 2017-12-08 15:57 | Emergency (ER) | payer OTHER ==
[2017-12-08 15:58] VITALS: BMI 27.4
[2017-12-08 16:24] VITALS: PULSE 68; RESP 20
[2017-12-08 17:32] LABS: BASO % 0.9 % (0.0-2.0); HEMOGLOBIN 14.3 g/dL (11.0-16.0); LYMPH # 1.8 K/uL (1.0-4.3); LYMPH % 38.4 % (20.0-40.0); MEAN CELL VOLUME 87.8 fL (81.0-99.0); MEAN CORPUSCULAR HEMOGLOBIN 30.1 pg (27.0-31.0); MEAN CORPUSCULAR HGB CONC 34.3 g/dL (33.0-37.0); MONO # 0.4 K/uL (0.0-0.8); MONO % 9.1 % (0.0-10.0); NEUT # 2.4 K/uL (1.8-7.0); NEUT % 50.6 % (50.0-75.0); NRBC % 0.1 % (0.0-2.0); RBC 4.76 Mil/uL (3.80-5.20); RED CELL DISTRIBUTION WIDTH 13.5 % (11.5-14.5); WHITE BLOOD COUNT 4.7 K/uL (4.8-10.8)
[2017-12-08 17:43] LABS: SQUAMOUS EPITHIAL 1 /hpf (0-5); URINE BACTERIA RARE (<OCC); URINE BILIRUBIN NEGATIVE (NEGATIVE); URINE BLOOD 1+ (NEGATIVE); URINE CLARITY Clear (Clear); URINE COLOR Yellow (YELLOW); URINE GLUCOSE (UA) NORMAL (Normal); URINE LEUKOCYTE ESTERASE NEG Leu/uL (Negative); URINE PROTEIN NEGATIVE (NEGATIVE); URINE UROBILINOGEN NORMAL mg/dL (0.2-1.0)
[2017-12-08 17:46] LABS: HCG,QUALITATIVE URINE NEGATIVE (NEGATIVE)
[2017-12-08 18:09] LABS: ALB/GLOB RATIO 1.6 (1.0-2.1); ALT/SGPT 30 U/L (9-52); AST/SGOT 33 U/L (14-36); BLOOD UREA NITROGEN 5 mg/dL (7-17); CALCIUM 9.7 mg/dl (8.6-10.4); GFR AFRICAN-AMERICAN > 60; GFR NON-AFRICAN AMERICAN > 60; LIPASE 104 U/L (23-300)
[2017-12-08 18:42] VITALS: BP 120/81; TEMP 98.6; O2SAT 100
--- NOTE | 2017-12-08 20:15 | C.PDOC ---
History Of Present Illness 22 year old female presents to the ED for evaluation after she received a call from clinic, stating her recent stool sample was positive for C. diff. Patient states she received both inpatient and outpatient treatment for C. diff one month ago. She denies fever, chills, changes in diet, blood in urine/stool, or dysuria. Chief Complaint (Nursing): Back Pain History Per: Patient History/Exam Limitations: no limitations Onset/Duration Of Symptoms: Days Current Symptoms Are (Timing): Still Present Additional History Per: Patient Past Medical History Reviewed: Historical Data, Nursing Documentation, Vital Signs Vital Signs: Last Vital Signs Temp 98.6 F 12/08/17 18:40 Pulse 68 12/08/17 18:40 Resp 20 12/08/17 18:40 BP 120/81 12/08/17 18:40 Pulse Ox 100 12/08/17 20:21 - Medical History PMH: Pneumonia Denies: Chronic Kidney Disease Surgical History: Tonsillectomy Family History: States: Unknown Family Hx - Social History Hx Tobacco Use: No Hx Alcohol Use: No Hx Substance Use: No - Immunization History Hx Tetanus Toxoid Vaccination: No Hx Influenza Vaccination: No Hx Pneumococcal Vaccination: No Review Of Systems Constitutional: Positive for: Other (positive for C. diff). Negative for: Fever , Chills Gastrointestinal: Negative for: Hematochezia Genitourinary: Negative for: Dysuria, Hematuria Physical Exam - Physical Exam Appears: Non-toxic, No Acute Distress Skin: Normal Color, Warm, Dry Head: Atraumatic, Normacephalic Eye(s): bilateral: Normal Inspection Oral Mucosa: Moist Neck: Supple Chest: Symmetrical, No Deformity, No Tenderness Cardiovascular: Rhythm Regular, No Murmur Respiratory: Normal Breath Sounds, No Rales, No Rhonchi, No Wheezing Gastrointestinal/Abdominal: Soft, No Tenderness, No Guarding, No Rebound Extremity: Normal ROM, Capillary Refill (less than 2 seconds ) Neurological/Psych: Oriented x3, Normal Speech, Normal Cognition ED Course And Treatment - Laboratory Results Result Diagrams: 12/08/17 17:29 12/08/17 17:29 O2 Sat by Pulse Oximetry: 100 (on RA) Pulse Ox Interpretation: Normal Medical Decision Making Medical Decision Making: Impression: 22 year old female with stool sample positive for C. diff Progress: Bloodwork and urinalysis ordered and reviewed. Motrin PO administered. Patient will not be restarted on antibiotic treatment due to normal bloodwork results in the ED. Patient currently denies fever, chills and diarrhea. She is stable for discharge and is advised to follow up with clinic within 1-2 days for further evaluation and/or return to the ED if symptoms persist or worsen. Disposition - Disposition Referrals: [facility] [Outside] [facility] [Outside] Disposition: HOME/ ROUTINE Disposition Time: 18:10 Condition: GOOD Additional Instructions: JACEY KC, thank you for letting us take care of you today. Your provider was Chance Chacko DO. The emergency medical care you received today was directed at your acute symptoms. If you were prescribed any medication, please fill it and take as directed. It may take several days for your symptoms to resolve. Return to the Emergency Department if your symptoms worsen, do not improve, or if you have any other problems. Please contact your doctor or call one of the physicians/clinics you have been referred to that are listed on the Patient Visit Information form that is included in your discharge packet. Bring any paperwork you were given at discharge with you along with any medications you are taking to your follow up visit. Our treatment cannot replace ongoing medical care by a primary care provider outside of the emergency department. Thank you for allowing the [facility] team to be part of your care today. Follow up with the clinic in 3-4 days for re-evaluation and further management. Prescriptions: Ibuprofen [Motrin] 600 mg PO Q6 PRN #20 tab PRN Reason: Pain, Moderate (4-7) Instructions: Clostridium difficile Forms: [employer] (Yi) - Clinical Impression Clinical Impression: C. difficile colitis - Scribe Statement The provider has reviewed the documentation as recorded by the Scribe (Lita Escalante) Provider Attestation: All medical record entries made by the Scribe were at my direction and personally dictated by me. I have reviewed the chart and agree that the record accurately reflects my personal performance of the history, physical exam, medical decision making, and the department course for this patient. I have also personally directed, reviewed, and agree with the discharge instructions and disposition.
== END 2017-12-08 18:41 | disposition home or self-care (01) ==
LOC: C.ER 15:57
DX: A04.72 Enterocolitis due to Clostridium difficile, not specified as recurrent (principal)

== ENCOUNTER 2018-06-12 15:41 | Emergency (ER) | payer SELFPAY ==
[2018-06-12 15:41] VITALS: BMI 26.4
[2018-06-12 15:46] VITALS: TEMP 98.6
[2018-06-12 16:16] LABS: SQUAMOUS EPITHIAL < 1 /hpf (0-5); URINE BILIRUBIN NEGATIVE (NEGATIVE); URINE BLOOD NEGATIVE (NEGATIVE); URINE CLARITY Clear (Clear); URINE COLOR Straw (YELLOW); URINE GLUCOSE (UA) NORMAL (Normal); URINE LEUKOCYTE ESTERASE NEG Leu/uL (Negative); URINE PROTEIN NEGATIVE (NEGATIVE); URINE UROBILINOGEN NORMAL mg/dL (0.2-1.0)
[2018-06-12 17:10] VITALS: BP 124/72; PULSE 68; RESP 18; O2SAT 98
--- NOTE | 2018-06-12 18:52 | C.PDOC ---
History Of Present Illness 22 year old female presents to the emergency department with complaints of increased urinary frequency and dysuria for the past 2-3 days. Patient denies fever, abdominal pain, vomiting, vaginal bleeding and discharge. Patient states that she has had one UTI in the past, and states that her current symptoms feel similar. Time Seen by Provider: 06/12/18 15:57 Chief Complaint (Nursing): Female Genitourinary History Per: Patient History/Exam Limitations: no limitations Onset/Duration Of Symptoms: Days (2-3 days) Current Symptoms Are (Timing): Still Present Quality Of Discomfort: "Pain" Associated Symptoms: Urinary Symptoms (urinary frequency, dysuria) Past Medical History Reviewed: Historical Data, Nursing Documentation, Vital Signs Vital Signs: Last Vital Signs Temp 98.6 F 06/12/18 15:45 Pulse 68 06/12/18 17:07 Resp 18 06/12/18 17:07 BP 124/72 06/12/18 17:07 Pulse Ox 98 06/12/18 17:07 - Medical History PMH: Pneumonia Denies: Chronic Kidney Disease Surgical History: Tonsillectomy Family History: States: No Known Family Hx - Social History Hx Tobacco Use: No Hx Alcohol Use: No Hx Substance Use: No - Immunization History Hx Tetanus Toxoid Vaccination: No Hx Influenza Vaccination: No Hx Pneumococcal Vaccination: No Review Of Systems Except As Marked, All Systems Reviewed And Found Negative. Constitutional: Negative for: Fever, Chills Gastrointestinal: Negative for: Nausea, Vomiting, Abdominal Pain, Diarrhea Genitourinary: Positive for: Dysuria, Frequency. Negative for: Vaginal Discharge, Vaginal Bleeding Physical Exam - Physical Exam Appears: Well, Non-toxic, No Acute Distress Skin: Normal Color, Warm, Dry Head: Atraumatic, Normacephalic Eye(s): bilateral: Normal Inspection, PERRL, EOMI Neck: Normal, Supple Chest: Symmetrical, No Tenderness Cardiovascular: Rhythm Regular, No Murmur Respiratory: Normal Breath Sounds, No Rales, No Rhonchi, No Wheezing Gastrointestinal/Abdominal: Normal Exam, Soft, No Tenderness, No Guarding, No Rebound Extremity: Normal ROM Neurological/Psych: Oriented x3, Normal Speech, Normal Cognition ED Course And Treatment O2 Sat by Pulse Oximetry: 98 (RA) Pulse Ox Interpretation: Normal Medical Decision Making Medical Decision Making: Plan: Urine Culture POC Urine Urinalysis Progress: Patient has a history of c-diff while taking abx in the past. Patient given the option of holding abx with negative UA, however, patient wishes to have a 3 day course prescribed. Cultures pending. Disposition - Disposition Referrals: [facility] [Outside] [facility] [Outside] Disposition: HOME/ ROUTINE Disposition Time: 16:55 Condition: GOOD Additional Instructions: JACEY KC, thank you for letting us take care of you today. The emergency medical care you received today was directed at your acute symptoms. If you were prescribed any medication, please fill it and take as directed. It may take several days for your symptoms to resolve. Return to the Emergency Department if your symptoms worsen, do not improve, or if you have any other problems. Please contact your doctor or call one of the physicians/clinics you have been referred to that are listed on the Patient Visit Information form that is included in your discharge packet. Bring any paperwork you were given at discharge with you along with any medications you are taking to your follow up visit. Our treatment cannot replace ongoing medical care by a primary care provider outside of the emergency department. Thank you for allowing the [facility] team to be part of your care today. You had a urine culture: It will take several days for the results, if any change in treatment is needed we will contact you. Follow up with your primary care doctor or our clinic this week for re- evaluation and further management. Prescriptions: Sulfamethoxazole/Trimethoprim [Bactrim DS 800 mg-160 mg] 1 tab PO BID #6 tab Instructions: Dysuria, Adult (DC) Forms: [email or web address] (Tunisian) - Clinical Impression Clinical Impression: Dysuria - Scribe Statement The provider has reviewed the documentation as recorded by the Scribe (Jonas Atkinsqvi) Provider Attestation: All medical record entries made by the Scribe were at my direction and personally dictated by me. I have reviewed the chart and agree that the record accurately reflects my personal performance of the history, physical exam, medical decision making, and the department course for this patient. I have also personally directed, reviewed, and agree with the discharge instructions and disposition.
== END 2018-06-12 17:10 | disposition home or self-care (01) ==
LOC: C.ER 15:41
DX: R30.0 Dysuria (principal)

== ENCOUNTER 2018-09-10 10:10 | Emergency (ER) | payer OTHER ==
[2018-09-10 10:10] VITALS: BMI 26.4
[2018-09-10 10:18] VITALS: BP 122/80; PULSE 68; RESP 16; TEMP 97.5; O2SAT 100
--- NOTE | 2018-09-10 10:43 | RAD ---
PROCEDURE: Left Hand Radiographs. HISTORY: Left thumb trauma COMPARISON: None. TECHNIQUE: 3 views obtained. FINDINGS: BONES: There is acute nondisplaced fracture at the distal phalanx of the left thumb. JOINTS: Normal. No osteoarthritic changes. SOFT TISSUES: Normal. OTHER FINDINGS: None. IMPRESSION: Acute fracture at the distal phalanx of the left thumb.
--- NOTE | 2018-09-10 10:50 | C.PDOC ---
Time Seen by Provider: 09/10/18 10:19 Chief Complaint (Nursing): Upper Extremity Problem/Injury Past Medical History Vital Signs: Last Vital Signs Temp 97.5 F L 09/10/18 10:16 Pulse 68 09/10/18 10:16 Resp 16 09/10/18 10:16 BP 122/80 09/10/18 10:16 Pulse Ox 100 09/10/18 10:16 - Medical History PMH: Pneumonia Denies: Chronic Kidney Disease Surgical History: Tonsillectomy Family History: States: Unknown Family Hx - Social History Hx Tobacco Use: No Hx Alcohol Use: No Hx Substance Use: No - Immunization History Hx Tetanus Toxoid Vaccination: No Hx Influenza Vaccination: No Hx Pneumococcal Vaccination: No ED Course And Treatment O2 Sat by Pulse Oximetry: 100 (on RA) Pulse Ox Interpretation: Normal Disposition - Disposition - Scribe Statement The provider has reviewed the documentation as recorded by the Scribluis Wilkinson All medical record entries made by the Scribe were at my direction and personally dictated by me. I have reviewed the chart and agree that the record accurately reflects my personal performance of the history, physical exam, medical decision making, and the department course for this patient. I have also personally directed, reviewed, and agree with the discharge instructions and d isposition.
--- NOTE | 2018-09-10 10:53 | C.PDOC ---
History Of Present Illness Patient is a 23 year old female who presents to the ED with her mother for evaluation of left thumb injury that occurred this morning when she hit her hand against a wall (she whipped her hand back because cat was jumping at her). Patient reports that her left thumb hurts, lyon, and cannot straighten it. She also states that she has taken Tylenol for the pain. She denies any other medical complaints. PMD: None Time Seen by Provider: 09/10/18 10:19 Chief Complaint (Nursing): Upper Extremity Problem/Injury History Per: Patient History/Exam Limitations: no limitations Onset/Duration Of Symptoms: Hrs Current Symptoms Are (Timing): Still Present Quality: "Pain" Recent travel outside of the [place]: No Additional History Per: Patient Past Medical History Reviewed: Historical Data, Nursing Documentation, Vital Signs Vital Signs: Last Vital Signs Temp 97.5 F L 09/10/18 10:16 Pulse 68 09/10/18 10:16 Resp 16 09/10/18 10:16 BP 122/80 09/10/18 10:16 Pulse Ox 100 09/10/18 10:16 - Medical History PMH: Pneumonia Other PMH: "Stomach problems" Surgical History: Tonsillectomy Family History: States: No Known Family Hx - Social History Hx Tobacco Use: No Hx Alcohol Use: No Hx Substance Use: No - Immunization History Hx Tetanus Toxoid Vaccination: No Hx Influenza Vaccination: No Hx Pneumococcal Vaccination: No Review Of Systems Musculoskeletal: Positive for: Hand Pain (left thumb) Physical Exam - Physical Exam Appears: Non-toxic, No Acute Distress Skin: Normal Color, Warm, Dry Head: Atraumatic, Normacephalic Oral Mucosa: Moist Neck: Normal ROM, Supple Chest: Symmetrical, No Deformity Cardiovascular: Rhythm Regular, No Murmur Respiratory: Normal Breath Sounds, No Rales, No Rhonchi, No Wheezing Extremity: Tenderness (left distal thumb ), Swelling (swollen left distal thumb ) Neurological/Psych: Oriented x3, Normal Speech ED Course And Treatment O2 Sat by Pulse Oximetry: 100 (on RA) Pulse Ox Interpretation: Normal - Other Rad Left Hand Xray X-Ray: Viewed By Me, Read By Radiologist Interpretation: PROCEDURE: Left Hand Radiographs. HISTORY: Left thumb trauma. COMPARISON: None. TECHNIQUE: 3 views obtained. FINDINGS: BONES: There is acute nondisplaced fracture at the distal phalanx of the left thumb. JOINTS: Normal. No osteoarthritic changes. SOFT TISSUES: Normal. OTHER FINDINGS: None. IMPRESSION: Acute fracture at the distal phalanx of the left thumb. Progress Note: PROCEDURE NOTE: LEFT THUMB PLACED IN A SPLINT Medical Decision Making Medical Decision Making: Initial Impression: left thumb trauma r/o fx Initial Plan: x-rays Progress note: (+) distal phalynx fracture. Images shared with on-call hand doctor/ortho doctor (Dr. Ted Giraldo) and he recommends finger splint and d/c home and to follow up in his office as an outpatient. Disposition Counseled Patient/Family Regarding: Studies Performed, Diagnosis, Need For Followup, Rx Given - Disposition Referrals: Ted Giraldo MD [Staff Provider] - Disposition: HOME/ ROUTINE Disposition Time: 10:51 Condition: STABLE Additional Instructions: Ms. Veronica, thank you for letting us take care of you today. Return to the ER if your symptoms worsen, or if any problems. Take the medication listed below as prescribed. It is important to follow up with our hand specialist (Dr. Ted Giraldo). Please call the phone number listed below to make an appointment with him this week. Prescriptions: Ibuprofen [Motrin Tab] 1 tab PO TID PRN #30 tab PRN Reason: Pain, Moderate (4-7) Instructions: Finger Fracture (DC) Print Language: RUSSIAN - POA Present On Arrival: None - Clinical Impression Clinical Impression: Fracture of thumb, left, closed - Scribe Statement The provider has reviewed the documentation as recorded by the Trista Wilkinson All medical record entries made by the Trista were at my direction and personally dictated by me. I have reviewed the chart and agree that the record accurately reflects my personal performance of the history, physical exam, medical decision making, and the department course for this patient. I have also personally directed, reviewed, and agree with the discharge instructions and disposition.
== END 2018-09-10 10:58 | disposition home or self-care (01) ==
LOC: C.ER 10:10
DX: S62.525A Nondisplaced fracture of distal phalanx of left thumb, initial encounter for closed fracture (principal); W22.01XA Walked into wall, initial encounter